=== PATIENT | female | born 1940 | race Caucasian/White ===

== ENCOUNTER 2017-05-27 18:14 | Observation (INO) ==
[~2017-05-27 18:14] MED LIST: *HR* Propofol 200 MG/20 ML VIAL IVP ONE; Lidocaine -MPF 2% 5 ML VIAL INFILT ONE
[2017-05-27 19:59] LABS: Basophils % 0.4 %; Hematocrit 25.9 % (35.3-44.9); Mean Corpuscular HGB Conc 28.6 g/dL (31.6-35.5); Mean Corpuscular Hemoglobin 21.3 pg (28.0-33.3); Mean Platelet Volume 10.6 fL (9.4-12.4); Monocytes # 0.6 K/mcL (0.0-1.3); Monocytes % 7.9 %; Nucleated Red Blood Cells 0.2 /100 WBC (0)
[2017-05-27 20:01] LABS: Eosinophils # 0.1 K/mcL (0.0-0.6); Eosinophils % 1.2 %; Immature Granulocytes % 0.6 % (0-4); Lymphocytes # 1.8 K/mcL (0.6-4.6); Lymphocytes % 22.1 %; Mean Corpuscular Volume 74.6 fL (83.0-100.0); Neutrophils # 5.5 K/mcL (1.6-8.9); Platelet Count 301 K/mcL (140-400); Red Blood Count 3.47 M/mcL (3.82-4.97); Red Cell Distribution Width 22.5 % (11.5-14.5); Segmented Neutrophils % 67.8 %
[2017-05-27 20:11] LABS: Calcium 9.6 mg/dL (8.6-10.8)
[2017-05-27 20:15] LABS: Hemoglobin 7.4 g/dL (11.5-15.4)
[2017-05-27 20:16] LABS: Anisocytosis 2+ (Not Present); Hypochromasia Present (Not Present); Microcytosis Present (Not Present); Platelet Clumps Few (Not Present)
--- NOTE | 2017-05-27 20:16 | Emergency Department Note ---
Disposition Clinical Impression: SOB (shortness of breath), Hypokalemia Anemia Qualifiers: Anemia type: other cause Other causes of anemia: other cause, not classified Qualified Code(s): D64.89 - Other specified anemias Disposition: Admitted As Inpatient Condition: Fair Time of Disposition: 23:25 General Adult HPI - General Chief complaint: ED Recheck/Abnormal Lab/Rx Stated complaint: Abnormal labs Time Seen by Provider: 05/27/17 19:59 Source: patient Limitations: no limitations Nursing Notes Reviewed: Yes Vital Signs Reviewed: Yes - History of Present Illness HPI Narrative: 77-year-old female presents to the emergency department with concern for anemia that her GI doctor sent her here for an inpatient lower endoscopy. The patient has been complaining of shortness of breath on exertion prior to being diagnosed with this anemia. There was also concern by the diet technician registered that this patient may need blood products. Pain Scale: 0 - Related Data Home Medications Medication Instructions Recorded Confirmed Aspirin [Adult Low Dose Aspirin EC] 81 mg PO DAILY 09/08/15 05/27/17 Atorvastatin Calcium 80 mg PO HS 09/08/15 05/27/17 Pioglitazone [Actos] 45 mg PO DAILY 09/08/15 05/27/17 Trospium Chloride [Trospium 60 mg PO DAILY 09/08/15 05/27/17 Chloride ER] Atenolol/Chlorthalidone [Tenoretic 1 each PO DAILY 05/27/17 05/27/17 100 Tablet] Ferrous Sulfate [Iron] 325 mg PO TID 05/27/17 05/27/17 Losartan [Cozaar] 25 mg PO DAILY 05/27/17 05/27/17 Metformin HCl [Metformin HCl ER] 1,000 mg PO DAILY 05/27/17 05/27/17 Omeprazole [PriLOSEC] 20 mg PO DAILY 05/27/17 05/27/17 Allergies Allergy/AdvReac Type Severity Reaction Status Date / Time No Known Allergies Allergy Verified 06/23/16 08:55 All systems ED: reviewed and negative except as stated. Review of Systems: As Per HPI Constitutional: Denies: fever Cardiovascular: Reports: dyspnea on exertion. Denies: chest pain Respiratory: Reports: dyspnea. Denies: cough, hemoptysis Gastrointestinal: Denies: abdominal pain Genitourinary: Denies: hematuria Integumentary: Denies: rash Neurological: Denies: headache Past Medical History - Past Medical History Medical history: Reports: arthritis, diabetes, hypertension Surgical history: Reports: hip replacement, hysterectomy, other Psychiatric history: Reports: no psych history - Social History Smoking Status: Never smoker Smokeless Tobacco Status: No Alcohol use: Reports: none Drug use: Reports: none Physical Exam General: Well Appearing 77-year-old female, in no acute distress Head: autraumatic, EOMI, conjuncitval pallor, no scleral icterus, Mouth: oral mucous membranes moist Neck: neck soft, trachea midline Chest:: Equal chest wall rise Lungs: Normal lungs sounds bilaterally, no wheezes, no respiratory distress Heart: normal heart sounds, normal rate and rhythm, Abdomen: soft, non-tender, no rigidity, no guarding, no rebdound tenderness Lower Extremities: no pedal edema, calves non-tender Integumentary: Skin warm, dry, and intact Neuro: Alert Psych: normal affect, normal mood - General Limitations: no limitations General appearance: alert, in no apparent distress Course Vital Signs Temperature 98.2 F 05/27/17 18:41 Pulse Rate 79 05/27/17 18:41 Respiratory Rate 16 05/27/17 18:41 Blood Pressure 102/63 05/27/17 18:41 O2 Sat by Pulse Oximetry 98 05/27/17 18:41 Temperature 97.4 F L 05/27/17 23:00 Pulse Rate 67 05/27/17 23:00 Respiratory Rate 18 05/27/17 23:31 Blood Pressure 116/95 05/27/17 23:31 O2 Sat by Pulse Oximetry 97 05/27/17 23:00 Oxygen Delivery Oxygen Delivery Room Air Medical Decision Making - [facility] Narrative Medical decision making narrative: 77-year-old female presents to the emergency department with concern for anemia. CBC revealed a hemoglobin of 7.4. This patient is currently symptomatic as she is having shortness of breath. At this time, we will transfuse 2 units of blood proximal to this patient. Fecal Hemoccult was negative. There was concern for possibility of needing admission to perform a lower endoscopy. At this time, I cannot find a source for this patient's anemia. Patient's electrocardiogram does not reveal any ischemic changes. Patient's vital signs did not reveal any evidence of hypovolemia. Patient was admitted to the hospitalist Dr. Lechuga. I discussed the plan with patient and her and they agreed for admission. Patient is also mildly hypokalemic with a potassium of 3.0. We will replace this with 40 mg equivalents of potassium Vital Signs Temperature 98.2 F 05/27/17 18:41 Pulse Rate 79 05/27/17 18:41 Respiratory Rate 16 05/27/17 18:41 Blood Pressure 102/63 05/27/17 18:41 O2 Sat by Pulse Oximetry 98 05/27/17 18:41 Temperature 97.4 F L 05/27/17 23:00 Pulse Rate 67 05/27/17 23:00 Respiratory Rate 18 05/27/17 23:31 Blood Pressure 116/95 05/27/17 23:31 O2 Sat by Pulse Oximetry 97 05/27/17 23:00 Oxygen Delivery Oxygen Delivery Room Air - Medical Records Medical records reviewed: Yes I reviewed the patient's medical records. 77 year female past medical history of - Lab Data Lab results reviewed: Yes I reviewed the patient's lab results. Result diagrams: 05/27/17 19:49 05/27/17 19:49 Lab Results 05/27/17 05/27/17 05/27/17 Range/Units 19:49 19:49 19:49 WBC 8.1 (4.3-11.1) K/mcL RBC 3.47 L (3.82-4.97) M/mcL Hgb 7.4 L (11.5-15.4) g/dL Hct 25.9 L (35.3-44.9) % MCV 74.6 L (83.0-100.0) fL MCH 21.3 L (28.0-33.3) pg MCHC 28.6 L (31.6-35.5) g/dL RDW 22.5 H (11.5-14.5) % Plt Count 301 (140-400) K/mcL MPV 10.6 (9.4-12.4) fL Immature Gran % 0.6 (0-4) % Seg Neutrophils % 67.8 % Lymphocytes % 22.1 % Monocytes % 7.9 % Eosinophils % 1.2 % Basophils % 0.4 % Neutrophils # 5.5 (1.6-8.9) K/mcL Lymphocytes # 1.8 (0.6-4.6) K/mcL Monocytes # 0.6 (0.0-1.3) K/mcL Eosinophils # 0.1 (0.0-0.6) K/mcL Basophils # 0.0 (0.0-0.2) K/mcL Nucleated RBCs/100 WBC 0.2 H (0) /100 WBC Clumped Platelets Few A (Not Present) Hypochromasia Present A (Not Present) Anisocytosis 2+ A (Not Present) Microcytosis Present A (Not Present) PT 11.4 (9.4-12.1) Seconds INR 1.1 APTT 29.2 (26.0-36.0) Seconds Sodium 139 (136-145) mEq/L Potassium 3.0 L (3.5-4.5) mEq/L Chloride 100 (98-109) mEq/L Carbon Dioxide 25 (19-29) mEq/L BUN 26 H (7-20) mg/dL Creatinine 1.26 H (0.57-1.11) mg/dL Est GFR ( Amer) 50 L (> 60) Est GFR (Non-Af Amer) 41 L (> 60) BUN/Creatinine Ratio 21 (6-26) Glucose 99 (70-99) mg/dL Calculated Osmolality 293 (280-300) Lactic Acid (0.5-2.2) mmol/L Calcium 9.6 (8.6-10.8) mg/dL Iron (50-170) mcg/dL % Saturation (15-50) % Transferrin (180-382) mg/dL Troponin I (0-0.03) ng/mL Stool Occult Blood (Negative) Blood Type Antibody Screen Crossmatch 05/27/17 05/27/17 05/27/17 Range/Units 19:49 19:49 20:28 WBC (4.3-11.1) K/mcL RBC (3.82-4.97) M/mcL Hgb (11.5-15.4) g/dL Hct (35.3-44.9) % MCV (83.0-100.0) fL MCH (28.0-33.3) pg MCHC (31.6-35.5) g/dL RDW (11.5-14.5) % Plt Count (140-400) K/mcL MPV (9.4-12.4) fL Immature Gran % (0-4) % Seg Neutrophils % % Lymphocytes % % Monocytes % % Eosinophils % % Basophils % % Neutrophils # (1.6-8.9) K/mcL Lymphocytes # (0.6-4.6) K/mcL Monocytes # (0.0-1.3) K/mcL Eosinophils # (0.0-0.6) K/mcL Basophils # (0.0-0.2) K/mcL Nucleated RBCs/100 WBC (0) /100 WBC Clumped Platelets (Not Present) Hypochromasia (Not Present) Anisocytosis (Not Present) Microcytosis (Not Present) PT (9.4-12.1) Seconds INR APTT (26.0-36.0) Seconds Sodium (136-145) mEq/L Potassium (3.5-4.5) mEq/L Chloride (98-109) mEq/L Carbon Dioxide (19-29) mEq/L BUN (7-20) mg/dL Creatinine (0.57-1.11) mg/dL Est GFR ( Amer) (> 60) Est GFR (Non-Af Amer) (> 60) BUN/Creatinine Ratio (6-26) Glucose (70-99) mg/dL Calculated Osmolality (280-300) Lactic Acid (0.5-2.2) mmol/L Calcium (8.6-10.8) mg/dL Iron 292 H (50-170) mcg/dL % Saturation 81 H (15-50) % Transferrin 259 (180-382) mg/dL Troponin I 0.01 (0-0.03) ng/mL Stool Occult Blood (Negative) Blood Type A POSITIVE Antibody Screen NEGATIVE Crossmatch See Detail 05/27/17 05/27/17 Range/Units 20:28 22:02 WBC (4.3-11.1) K/mcL RBC (3.82-4.97) M/mcL Hgb (11.5-15.4) g/dL Hct (35.3-44.9) % MCV (83.0-100.0) fL MCH (28.0-33.3) pg MCHC (31.6-35.5) g/dL RDW (11.5-14.5) % Plt Count (140-400) K/mcL MPV (9.4-12.4) fL Immature Gran % (0-4) % Seg Neutrophils % % Lymphocytes % % Monocytes % % Eosinophils % % Basophils % % Neutrophils # (1.6-8.9) K/mcL Lymphocytes # (0.6-4.6) K/mcL Monocytes # (0.0-1.3) K/mcL Eosinophils # (0.0-0.6) K/mcL Basophils # (0.0-0.2) K/mcL Nucleated RBCs/100 WBC (0) /100 WBC Clumped Platelets (Not Present) Hypochromasia (Not Present) Anisocytosis (Not Present) Microcytosis (Not Present) PT (9.4-12.1) Seconds INR APTT (26.0-36.0) Seconds Sodium (136-145) mEq/L Potassium (3.5-4.5) mEq/L Chloride (98-109) mEq/L Carbon Dioxide (19-29) mEq/L BUN (7-20) mg/dL Creatinine (0.57-1.11) mg/dL Est GFR ( Amer) (> 60) Est GFR (Non-Af Amer) (> 60) BUN/Creatinine Ratio (6-26) Glucose (70-99) mg/dL Calculated Osmolality (280-300) Lactic Acid 2.3 H (0.5-2.2) mmol/L Calcium (8.6-10.8) mg/dL Iron (50-170) mcg/dL % Saturation (15-50) % Transferrin (180-382) mg/dL Troponin I (0-0.03) ng/mL Stool Occult Blood Negative (Negative) Blood Type Antibody Screen Crossmatch - EKG Data EKG #1 EKG attestation: Yes I reviewed and interpreted this EKG. EKG results narrative: 20:38 Ventricular rate 74 bpm, DE interval 209 ms, QRS duration 89 ms, QT 412 ms, QTC 439 ms, left axis deviation. Sinus rhythm with ventricular rate of 74 bpm. There are no ischemic ST changes noted on this electrocardiogram with a previous one performed on 12/15/2012.
[2017-05-27 20:25] LABS: INR 1.1; Prothrombin Time 11.4 Seconds (9.4-12.1)
[2017-05-27 20:27] LABS: Activated Partial Thrombo Time 29.2 Seconds (26.0-36.0)
--- NOTE | 2017-05-27 21:16 | Emergency Department Note ---
START Narrative - START START: I examined this patient and my medical decision-making was reviewed with the Resident Physician. I agree with the documented findings, disposition and treatment plan as described except to the extent set forth below. 77 year old female presents to the ED with complaints o hgb of 7.7 and shorness of breath and was asked to come to the eD for admission because they woul dnot do her as an outpaitnent colonscopy due to her hgb level. Crescencio has ahgb of 7.4 and denies GI lower bleed or upper bleed or abdominal pain. We will transfuse two units and admit to medicine for colonscopy.
[2017-05-27] MEDS ORDERED: Potassium Citrate 10 MEQ TABLET.ER PO ONE (23:06)
[2017-05-27 23:22] LABS: % Iron Saturation 81 % (15-50); Iron 292 mcg/dL (50-170); Transferrin 259 mg/dL (180-382)
[2017-05-27] MEDS ORDERED: *HR* Dextrose 50 % in Water (Syg) 50 ML SYRINGE IVP PRN (23:45)
[2017-05-27] MEDS ORDERED: Dextrose Gel 15 GM PO PRN ×2 (23:45)
[2017-05-27] MEDS ORDERED: *HR* OxyCODONE Immed Rel 5 MG TABLET PO PRN (23:45)
[2017-05-27] MEDS ORDERED: Acetaminophen 325 MG TABLET PO PRN (23:45)
[2017-05-27] MEDS ORDERED: Ondansetron 4 MG/2 ML VIAL IVP PRN (23:45)
[2017-05-27] MEDS ORDERED: Naloxone 0.4 MG/ML INJ IVP PRN (23:45)
[2017-05-27] MEDS ORDERED: *HR* Morphine 2 MG/ML SYRINGE IVP PRN (23:45)
[2017-05-27] MEDS ORDERED: D5% in Water 1,000 ML IVC PRN (23:45)
[2017-05-27] MEDS ORDERED: 0.9 % Sodium Chloride 1,000 ML IVC SCH (23:45)
--- NOTE | 2017-05-27 23:48 | Internal Med History&Physical ---
Date of Encounter: 05/27/17 Time of Encounter: 23:48 Assessment and Plan (1) Symptomatic anemia Current visit: Yes Status: Acute No signs of active bleeding Monitor CBC, complete 2 units of blood ordered by ER IV fluids Clear liquids for now, hold aspirin Consider holding blood pressure medications Check orthostatics, start Protonix IV May consult surgery if the patient presents active bleeding, otherwise can consult GI on Tuesday for endoscopy as there is no GI coverage over the weekend for non-emergent procedures Protonix 40 prophylaxis and sequential compression devices for DVT prophylaxis. The patient will be admitted for observation. Full code. Time spent on this admission 40 minutes (2) Diabetes Current visit: Yes Status: Acute Hold oral Hypoglycemic agents Use insulin sliding scale only Qualifiers: Diabetes mellitus type: type 2 Diabetes mellitus complication status: without complication Diabetes mellitus tank terminal gauger insulin use: without tank terminal gauger use Qualified Code(s): E11.9 - Type 2 diabetes mellitus without complications (3) Hypertension Current visit: Yes Status: Acute Consider holding atenolol if there are signs of bleeding Qualifiers: Hypertension type: essential hypertension Qualified Code(s): I10 - Essential (primary) hypertension (4) Hypokalemia Current visit: Yes Status: Acute Replete as needed Internal Medicine - H&P: HPI Chief complaint: Weakness Admitted From: Emergency Dept History of present illness: Ms. Vaca is a 77 year old female with a past medical history of diabetes type 2 not insulin-dependent, GERD, hypertension, hyperlipidemia, came to the emergency room complaining of fatigue. Apparently she went to see her primary care physician recently and she was told to come to the ER as her blood counts were low. Her hemoglobin is 7.4 potassium is 3, creatinine is 1.26, there are no prior values, lactic acid is 2.3. Hemoccult was negative and there are no signs of active bleeding. Patient will be transfused with 2 units of blood ordered by the ER. She mentions that she has been feeling DZ and very fatigued over the past 3 months. Last colonoscopy was at the end of last year and showed only diverticulosis. This was performed by Dr. Finnegan. Denies dark stools or active bleeding. Past Med Surg Social Fam HX - Past Medical History Medical history: arthritis, diabetes (Not insulin-dependent), GERD, hypertension , other (Osteoarthritis, diverticulosis) Psychiatric history: no psych history - Past Surgical History Surgical History: hip replacement, hysterectomy, other - Social History Smoking Status: Never smoker Smokeless Tobacco Status: No Alcohol use: none Drug use: none - Additional Family History Additional family history: Mother with CVA and maternal grandmother with diabetes Internal Medicine - H&P: Meds Aspirin [Adult Low Dose Aspirin EC] 81 mg PO DAILY 09/08/15 [History] Atorvastatin Calcium 80 mg PO HS 09/08/15 [History] Pioglitazone [Actos] 45 mg PO DAILY 09/08/15 [History] Trospium Chloride [Trospium Chloride ER] 60 mg PO DAILY 09/08/15 [History] Atenolol/Chlorthalidone [Tenoretic 100 Tablet] 1 each PO DAILY 05/27/17 [History ] Ferrous Sulfate [Iron] 325 mg PO TID 05/27/17 [History] Losartan [Cozaar] 25 mg PO DAILY 05/27/17 [History] Metformin HCl [Metformin HCl ER] 1,000 mg PO DAILY 05/27/17 [History] Omeprazole [PriLOSEC] 20 mg PO DAILY 05/27/17 [History] 3 Allergy/AdvReac Type Severity Reaction Status Date / Time No Known Allergies Allergy Verified 06/23/16 08:55 All Systems PM: A 10-system review of systems was performed and is negative for pertinent findings except as documented above in the HPI. Review of systems: No chest pain, short of breath, no abdominal pain, no dysuria. Other systems out of the 10 reviewed were negative - Constitutional Vitals: Temp Pulse Resp BP Pulse Ox 97.4 F L 67 18 116/95 97 05/27/17 23:00 05/27/17 23:00 05/27/17 23:31 05/27/17 23:31 05/27/17 23:00 General appearance: Present: A&O X 3 - Head Head exam: Present: atraumatic, normocephalic - Eye Eye exam: Present: PERRL, conjuntiva pink, sclera anicteric Pupils: Present: PERRL - Neck Neck exam general surgery: Present: supple, trachea midline. Absent: lymphadenopathy - Respiratory Respiratory exam: Present: CTAB. Absent: accessory muscle use, rales, rhonchi, wheezes - Cardiovascular Cardiovascular exam: Present: RRR, +S1, +S2. Absent: diastolic murmur, gallop, rubs, systolic murmur - GI/Abdominal GI/Abdominal exam: Present: normal bowel sounds, soft, no peritoneal signs. Absent: distended, tenderness - Extremities Exam Extremities exam: Present: warm, radial pulses palpable and symmetrical. Absent : calf tenderness, cyanotic, pedal edema - Neurological Exam Neurological exam: Present: CN II-XII intact, oriented X3, no focal deficits. Absent: pronater drift, facial droop, speech deficit - Skin Skin exam: Present: dry, intact Internal Med - H&P Results - Labs CBC & Chem 7: 05/27/17 19:49 05/27/17 19:49
[2017-05-28] MEDS: Pantoprazole 40 MG VIAL IVP SCH ×3 (00:58→17:38)
[2017-05-28] MEDS ORDERED: 0.9 % Sodium Chloride 250 ML ONE (01:04)
[2017-05-28 04:51] LABS: Hematocrit 31.4 % (35.3-44.9); Mean Corpuscular HGB Conc 30.3 g/dL (31.6-35.5); Mean Corpuscular Hemoglobin 24.1 pg (28.0-33.3); Mean Corpuscular Volume 79.5 fL (83.0-100.0); Mean Platelet Volume 10.9 fL (9.4-12.4); Platelet Count 227 K/mcL (140-400); Red Blood Count 3.95 M/mcL (3.82-4.97); Red Cell Distribution Width 22.7 % (11.5-14.5)
[2017-05-28 04:54] LABS: Hemoglobin 9.5 g/dL (11.5-15.4)
[2017-05-28 05:08] LABS: Calcium 8.8 mg/dL (8.6-10.8); Potassium 3.1 mEq/L (3.5-4.5)
[2017-05-28] MEDS: Insulin LISPRO 300 UNITS/3 ML VIAL SQ SCH ×4 (08:10→20:14)
[2017-05-28] MEDS ORDERED: 0.9 % Sodium Chloride 1,000 ML IVC ONE (16:04)
--- NOTE | 2017-05-28 16:14 | Internal Med Progress Note ---
Date of Encounter: 05/28/17 Time of Encounter: 16:03 - Assessment and plan (1) Symptomatic anemia Current Visit: Yes Status: Acute Assessment and plan: Kaia Vaca is a 77 old female with past medical history diabetes and hypertension who presented to [facility] on 05/27/2017 with complaints of lightheadedness and dizziness. She was found to be anemic with Hgb of 7.4. She was transfused 2 units and placed in observation status for further workup and treatment. 1. Symptomatic anemia: Has been weak, tired and fatigue for several weeks prior to presentation. Hgb 7.4 on arrival. Occult stool negative, no active bleeding. Monitor H&H, transfuse for Hgb less than 8, IV PPI. GI consulted 2. Hypokalemia: K3 on arrival, replaced in up to 3.1 on 05/28. Order replacement, monitor repeat CMP, check mg. 3. RADHA: Creatinine 1.2. No history of renal disease. Likely secondary to hypovolemia. Improving with IV fluids. Monitor repeat renal function. 4. Elevated lactic acid: Lactic acid peaked at 2.8. No obvious infectious source. WBC 6.9, no tachycardia, no hypotension. IV fluids monitor repeat lactic acid 5. CAD: per hx. Hold ASA. Cont home BB, statin 6. DVT prophylaxis: SCDs (2) CAD (coronary artery disease) Current Visit: Yes Status: Acute Qualifiers: Coronary Disease-Associated Artery/Lesion type: [place] artery [place] vs. transplanted heart: [place] heart Associated angina: without angina Qualified Code(s): I25.10 - Atherosclerotic heart disease of [place] coronary artery without angina pectoris (3) Hypokalemia Current Visit: Yes Status: Acute (4) Diabetes Current Visit: Yes Status: Acute Qualifiers: Diabetes mellitus type: type 2 Diabetes mellitus complication status: without complication Diabetes mellitus long-term insulin use: without buttermaker continuous churn use Qualified Code(s): E11.9 - Type 2 diabetes mellitus without complications (5) Hypertension Current Visit: Yes Status: Acute Qualifiers: Hypertension type: essential hypertension Qualified Code(s): I10 - Essential (primary) hypertension - Subjective Interval history: Seen and examined at bedside, patient says she feels much better after receiving blood. She denies obvious bleeding. No dark or tarry stools. - Constitutional Vitals: Temp Pulse Resp BP Pulse Ox 97.6 F 70 14 121/69 99 05/28/17 10:49 05/28/17 10:49 05/28/17 10:49 05/28/17 10:49 05/28/17 10:49 General appearance: Present: A&O X 3 - Head Head exam: Present: atraumatic, normocephalic - Eye Eye exam: Present: PERRL, conjuntiva pink, sclera anicteric Pupils: Present: PERRL - Neck Neck exam general surgery: Present: supple, trachea midline. Absent: lymphadenopathy - Respiratory Respiratory exam: Present: CTAB. Absent: accessory muscle use, rales, rhonchi, wheezes - Cardiovascular Cardiovascular exam: Present: RRR, +S1, +S2. Absent: diastolic murmur, gallop, rubs, systolic murmur - GI/Abdominal GI/Abdominal exam: Present: normal bowel sounds, soft, no peritoneal signs. Absent: distended, tenderness - Extremities Exam Extremities exam: Present: warm, radial pulses palpable and symmetrical. Absent : calf tenderness, cyanotic, pedal edema - Neurological Exam Neurological exam: Present: CN II-XII intact, oriented X3, no focal deficits. Absent: pronater drift, facial droop, speech deficit - Skin Skin exam: Present: dry, intact Internal Medicine: Result - Labs CBC & Chem 7: 05/28/17 04:30 05/28/17 04:30 Labs: Short CBC 05/28/17 Range/Units 04:30 WBC 6.9 (4.3-11.1) K/mcL Hgb 9.5 L D (11.5-15.4) g/dL Hct 31.4 L (35.3-44.9) % Plt Count 227 (140-400) K/mcL BMP 05/28/17 04:30 Sodium 140 Potassium 3.1 L Chloride 105 Carbon Dioxide 25 BUN 23 H Creatinine 1.13 H Glucose 94 Calcium 8.8 - ABG Interpretation ABG results: PT/INR, D-dimer PT 11.4 Seconds (9.4-12.1) 05/27/17 19:49 Consult Discharge Plan - Plan Referrals: Cecille Mary MD [Primary Care Provider] -
[2017-05-28] MEDS: 0.9 % Sodium Chloride 1,000 ML IVC SCH ×2 (17:38→21:31)
[2017-05-29 04:43] LABS: Hematocrit 30.6 % (35.3-44.9); Hemoglobin 9.1 g/dL (11.5-15.4); Mean Corpuscular HGB Conc 29.7 g/dL (31.6-35.5); Mean Corpuscular Hemoglobin 23.7 pg (28.0-33.3); Mean Corpuscular Volume 79.7 fL (83.0-100.0); Mean Platelet Volume 11.3 fL (9.4-12.4); Platelet Count 223 K/mcL (140-400); Red Blood Count 3.84 M/mcL (3.82-4.97); Red Cell Distribution Width 23.1 % (11.5-14.5)
[2017-05-29 04:59] LABS: BUN/Creatinine Ratio 16 (6-26); Blood Urea Nitrogen 14 mg/dL (7-20); Calcium 8.2 mg/dL (8.6-10.8); Carbon Dioxide 22 mEq/L (19-29); Chloride 112 mEq/L (98-109); Glucose 86 mg/dL (70-99); Magnesium 1.2 mg/dL (1.6-2.6); Osmolality,Calculated 296 (280-300); Potassium 3.5 mEq/L (3.5-4.5); Sodium 143 mEq/L (136-145); eGFR For African Americans > 60 (> 60); eGFR For Non-African Americans > 60 (> 60)
[2017-05-29] MEDS: Pantoprazole 40 MG VIAL IVP SCH ×2 (05:24→16:57)
[2017-05-29] MEDS: Insulin LISPRO 300 UNITS/3 ML VIAL SQ SCH ×4 (08:53→21:29)
--- NOTE | 2017-05-29 16:09 | Internal Med Progress Note ---
Date of Encounter: 05/29/17 Time of Encounter: 16:09 - Assessment and plan (1) Symptomatic anemia Current Visit: Yes Status: Acute Assessment and plan: Kaia Vaca is a 77 old female with past medical history diabetes and hypertension who presented to [facility] on 05/27/2017 with complaints of lightheadedness and dizziness. She was found to be anemic with Hgb of 7.4. She was transfused 2 units and placed in observation status for further workup and treatment. 1. Symptomatic anemia: Has been weak, tired and fatigue for several weeks prior to presentation. Hgb 7.4 on arrival. Received 2 units PRBC and EGD. Occult stool negative, no active bleeding. Repeat Hgb 9.1. Monitor H&H, transfuse for Hgb less than 8, IV PPI. NPO at midnight. GI consulted 2. Hypokalemia: With hypomagnesium. Replace PRN 3. RADHA: Creatinine 1.2. No history of renal disease. Likely secondary to hypovolemia. Normalized with IV fluids. Monitor repeat renal function. 4. Elevated lactic acid: Lactic acid peaked at 2.8 and trended down. No obvious infectious source. WBC 6.9, no tachycardia, no hypotension. 5. CAD: per hx. Hold ASA. Cont home BB, statin 6. DVT prophylaxis: SCDs (2) CAD (coronary artery disease) Current Visit: Yes Status: Acute Qualifiers: Coronary Disease-Associated Artery/Lesion type: [place] artery [place] vs. transplanted heart: [place] heart Associated angina: without angina Qualified Code(s): I25.10 - Atherosclerotic heart disease of [place] coronary artery without angina pectoris (3) Hypokalemia Current Visit: Yes Status: Acute (4) Diabetes Current Visit: Yes Status: Acute Qualifiers: Diabetes mellitus type: type 2 Diabetes mellitus complication status: without complication Diabetes mellitus fdc insulin use: without emt intermediate use Qualified Code(s): E11.9 - Type 2 diabetes mellitus without complications (5) Hypertension Current Visit: Yes Status: Acute Qualifiers: Hypertension type: essential hypertension Qualified Code(s): I10 - Essential (primary) hypertension - Subjective Interval history: Seen and examined at bedside; says she had an uneventful night. No black or tarry stools, no obvious bleeding. Still a little tired and weak but overall significantly improved. No chest pain or shortness of breath. - Constitutional Vitals: Temp Pulse Resp BP Pulse Ox 97.8 F 67 16 134/70 97 05/29/17 15:16 05/29/17 15:16 05/29/17 15:16 05/29/17 15:16 05/29/17 15:16 General appearance: Present: A&O X 3, morbidly obese, no acute distress - Head Head exam: Present: atraumatic, normocephalic - Eye Eye exam: Present: PERRL, conjuntiva pink, sclera anicteric Pupils: Present: PERRL - Neck Neck exam general surgery: Present: supple, trachea midline. Absent: lymphadenopathy - Respiratory Respiratory exam: Present: CTAB. Absent: accessory muscle use, rales, rhonchi, wheezes - Cardiovascular Cardiovascular exam: Present: RRR, +S1, +S2. Absent: diastolic murmur, gallop, rubs, systolic murmur - GI/Abdominal GI/Abdominal exam: Present: normal bowel sounds, soft, no peritoneal signs. Absent: distended, tenderness - Extremities Exam Extremities exam: Present: warm, radial pulses palpable and symmetrical. Absent : calf tenderness, cyanotic, pedal edema - Neurological Exam Neurological exam: Present: CN II-XII intact, oriented X3, no focal deficits. Absent: pronater drift, facial droop, speech deficit - Skin Skin exam: Present: dry, intact Internal Medicine: Result - Labs CBC & Chem 7: 05/29/17 03:50 05/29/17 03:50 Labs: Short CBC 05/29/17 Range/Units 03:50 WBC 5.7 (4.3-11.1) K/mcL Hgb 9.1 L (11.5-15.4) g/dL Hct 30.6 L (35.3-44.9) % Plt Count 223 (140-400) K/mcL BMP 05/29/17 03:50 Sodium 143 Potassium 3.5 Chloride 112 H Carbon Dioxide 22 BUN 14 Creatinine 0.88 Glucose 86 Calcium 8.2 L - ABG Interpretation ABG results: PT/INR, D-dimer PT 11.4 Seconds (9.4-12.1) 05/27/17 19:49 Consult Discharge Plan - Plan Referrals: Cecille Mary MD [Primary Care Provider] -
[2017-05-30 04:49] LABS: Hemoglobin 9.1 g/dL (11.5-15.4); Mean Corpuscular HGB Conc 29.4 g/dL (31.6-35.5); Mean Corpuscular Hemoglobin 23.9 pg (28.0-33.3); Mean Corpuscular Volume 81.4 fL (83.0-100.0); Platelet Count 200 K/mcL (140-400); Red Blood Count 3.81 M/mcL (3.82-4.97); Red Cell Distribution Width 24.2 % (11.5-14.5)
[2017-05-30 05:02] LABS: Calcium 8.4 mg/dL (8.6-10.8); Potassium 3.5 mEq/L (3.5-4.5)
[2017-05-30] MEDS: Pantoprazole 40 MG VIAL IVP SCH ×2 (05:35→16:14)
[2017-05-30] MEDS: Insulin LISPRO 300 UNITS/3 ML VIAL SQ SCH ×4 (09:39→21:31)
--- NOTE | 2017-05-30 12:18 | Gastroenterology Consult Note ---
<Silvia Matthews - Last Filed: 05/30/17 12:12> Date of Encounter: 05/30/17 Time of Encounter: 10:30 - Assessment and plan (1) Symptomatic anemia Current Visit: Yes Status: Acute Assessment and plan: Pt presents with symptomatic anemia, Hgb was 7.4. She is improved following transfusion. She denies hematemesis or hematochezia or melena. She had colonoscopy by Dr Finnegan 06/09 which showed diverticulosis. She needs EGD. She may need repeat colonoscopy vs capsule endoscopy if EGD normal. - Time Spent With Patient Total time spent is greater than 50% in coordination of care (as documented) at patient's floor/unit and/or counseling patient: GI History of Present Illness - Data of Consult Patient: new to practice Consult date: 05/30/17 Requesting Physician: Michelle Richardson CNP - Consult Narrative Reason for consult: anemia History of present illness: Ms. Vaca is a 77 year old female with a past medical history of diabetes type 2 not insulin-dependent, GERD, hypertension, and hyperlipidemia. She presented to the ER after her PCP informed her that her Hgb and iron were very low. She complains of fatigue, dizziniess, near syncope, and dyspnea on exertion for the past 3 months. She states she was recently started on iron supplements with no change in symptoms. She was found to have a hemoglobin 7.4 and has been transfused 2 units and feels much better now. She denies any hematemesis, melena or bloody BMs. She denies abdominal pain, nausea, vomiting or diarrhea. She complains of intermittent constipation and reports no BM for the past 5 days. Last colonoscopy was 06/09 showed only diverticulosis by Dr. Finnegan. She denies EGD. Colonoscopy: 06/09 diverticulosis EGD: denies NSAIDS/ASA: ASA 81 mg Anticoagulants: none Past Med Surg Social Fam HX - Past Medical History Medical history: arthritis, diabetes, GERD, hypertension, other Psychiatric history: no psych history - Past Surgical History Surgical History: hip replacement, hysterectomy, other - Social History Smoking Status: Never smoker Smokeless Tobacco Status: No Alcohol use: none Drug use: none - Family History Father Living Status: Hx Family Endocrine Disorder: Yes Review of Systems: GI: as per [facility] GENERAL: denies fever, or chills EYES: denies yellow discoloration ENT: denies pain with swallowing or difficulty swallowing CARDIO: denies chest pain, palpitations RESP: Shortness of breath with exertion : denies change in color of urine NEURO: weakness and fatigue improved following blood transfusion HEME: Denies any bruising MS: denies joint pain, joint swelling or back pain. DERM: denies rash or itching PSYCH: Denies history of anxiety or depression - Constitutional Vitals: Temp Pulse Resp BP Pulse Ox 98.1 F 90 16 133/78 90 05/30/17 11:00 05/30/17 11:00 05/30/17 11:00 05/30/17 11:00 05/30/17 11:00 Exam: CONSTITUTIONAL:~alert, no acute distress.~HEAD:~normocephalic.~EYES:~no jaundice.~NECK:~no obvious swelling.~HEART:~regular rate and rhythm, no murmurs. ~LUNGS:~bilateral good air entry.~ABDOMEN:~non distended, soft, non tender, no masses palpable, no organomegaly, low transverse abdominal scar well healed.~ RECTAL EXAM:~Deferred.~EXTREMITIES:~no clubbing, cyanosis or edema.~SKIN:~no stigmata of chronic liver disease.~NEUROLOGIC:~no obvious focal defect.~~~~ Results - Labs CBC & Chem 7: 05/30/17 03:55 05/30/17 03:55 Labs: Last Result Calcium 8.4 mg/dL (8.6-10.8) L 05/30/17 03:55 Iron 292 mcg/dL (50-170) H 05/27/17 19:49 % Saturation 81 % (15-50) H 05/27/17 19:49 Transferrin 259 mg/dL (180-382) 05/27/17 19:49 Troponin I 0.01 ng/mL (0-0.03) 05/27/17 19:49 Stool Occult Blood Negative (Negative) 05/27/17 22:02 Entire Visit Hgb 9.1 g/dL (11.5-15.4) L 05/30/17 03:55 Hct 31.0 % (35.3-44.9) L 05/30/17 03:55 PT 11.4 Seconds (9.4-12.1) 05/27/17 19:49 - ABG ABG results: PT/INR, D-dimer PT 11.4 Seconds (9.4-12.1) 05/27/17 19:49 Consult Discharge Plan - Plan Referrals: Cecille Mary MD [Primary Care Provider] - <Joi Callaway - Last Filed: 05/31/17 08:35> Date of Encounter: 05/30/17 Time of Encounter: 14:25 - Time Spent With Patient Total time spent is greater than 50% in coordination of care (as documented) at patient's floor/unit and/or counseling patient: GI History of Present Illness - Data of Consult Requesting Physician: Michelle Richardson CNP - Consult Narrative History of present illness: Ms. Vaca is a 77 year old female - Constitutional Vitals: Temp Pulse Resp BP Pulse Ox 97.7 F 73 15 117/74 97 05/31/17 06:37 05/31/17 06:37 05/31/17 06:37 05/31/17 06:37 05/31/17 06:37 Results - Labs CBC & Chem 7: 05/31/17 05:24 05/31/17 05:24 Labs: Last Result Calcium 8.7 mg/dL (8.6-10.8) 05/31/17 05:24 Iron 292 mcg/dL (50-170) H 05/27/17 19:49 % Saturation 81 % (15-50) H 05/27/17 19:49 Transferrin 259 mg/dL (180-382) 05/27/17 19:49 Troponin I 0.01 ng/mL (0-0.03) 05/27/17 19:49 Stool Occult Blood Negative (Negative) 05/27/17 22:02 Entire Visit Hgb 10.1 g/dL (11.5-15.4) L 05/31/17 05:24 Hct 34.5 % (35.3-44.9) L 05/31/17 05:24 PT 11.4 Seconds (9.4-12.1) 05/27/17 19:49 - ABG ABG results: PT/INR, D-dimer PT 11.4 Seconds (9.4-12.1) 05/27/17 19:49
[2017-05-30] MEDS ORDERED: Tetracaine/Benzocaine/Butamben 200MG/SPRAY (100SPY/BOT) ONE (14:28)
--- NOTE | 2017-05-30 14:45 | Anesthesia Evaluation PreOp ---
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 History: Denies Any Significant HX Other Medical History: Bleeding, Diabetes Type II (well controlled; oral medications only), GERD Anesthesia History: No Prior Anesthetic Complications, Past Anesthesia Alcohol Use: none Drug use: none Medications and Allergies Aspirin [Adult Low Dose Aspirin EC] 81 mg PO DAILY 09/08/15 [History] Atorvastatin Calcium 80 mg PO HS 09/08/15 [History] Pioglitazone [Actos] 45 mg PO DAILY 09/08/15 [History] Trospium Chloride [Trospium Chloride ER] 60 mg PO DAILY 09/08/15 [History] Atenolol/Chlorthalidone [Tenoretic 100 Tablet] 1 each PO DAILY 05/27/17 [History ] Ferrous Sulfate [Iron] 325 mg PO TID 05/27/17 [History] Losartan [Cozaar] 25 mg PO DAILY 05/27/17 [History] Metformin HCl [Metformin HCl ER] 1,000 mg PO DAILY 05/27/17 [History] Omeprazole [PriLOSEC] 20 mg PO DAILY 05/27/17 [History] 3 Allergy/AdvReac Type Severity Reaction Status Date / Time No Known Allergies Allergy Verified 06/23/16 08:55 - Meds/Allergy Pre-op Review Medications Reviewed: Yes Allergies Reviewed: Yes Beta Blockers on Current Med List: Yes If Beta Blockers taken, Date/Time (Last Dose taken): 05-30-17 atenolol 9:39 Anesthesia Results - Labs 05/30/17 03:55 05/30/17 03:55 Anesthesia Exam Last Vital Signs Temp 97.7 F 05/30/17 14:11 Pulse 67 05/30/17 14:11 Resp 18 05/30/17 14:11 BP 156/79 05/30/17 14:11 Pulse Ox 98 05/30/17 14:11 Weight: 81 kg NPO (# of Hours): > 8 hrs - HEENT Pupil (Motor): Pupils equal, EOMI Mallampati: II Teeth: Poor dentition Oral Opening: Greater than 3 - MACHINE FIXER LOC: Oriented MACHINE FIXER Motor: Normal RUE, Normal LUE, Normal RLE, Normal LLE, Normal Face - Cardiac Rhythm: Regular Murmur: None - Pulmonary Breath Sounds: bilateral Clear Respiratory Effort: Symmetrical Anesthesia Assess/Plan ASA Score: 3 Modified Mingus Scale for Level of Consciousness: Cooperative, oriented, and tranquil Anesthetic Plan: MAC Monitoring Plan: Standard Monitors Recovery Plan: PACU
[2017-05-30] MEDS ORDERED: SODIUM CHLORIDE/NAHCO3/KCL/PEG 4,000 ML SOLN.RECON PO ONE (15:07)
--- NOTE | 2017-05-30 15:40 | Internal Med Progress Note ---
Date of Encounter: 05/30/17 Time of Encounter: 15:37 - Assessment and plan (1) Symptomatic anemia Current Visit: Yes Status: Acute Assessment and plan: Kaia Vaca is a 77 old female with past medical history diabetes and hypertension who presented to [facility] on 05/27/2017 with complaints of lightheadedness and dizziness. She was found to be anemic with Hgb of 7.4. She was transfused 2 units and placed in observation status for further workup and treatment. 1. Symptomatic anemia: Has been weak, tired and fatigue for several weeks prior to presentation. Hgb 7.4 on arrival. Received 2 units PRBC and EGD. Occult stool negative, no active bleeding. Repeat Hgb 9.1. Monitor H&H, transfuse for Hgb less than 8, IV PPI. EGD on 05/30 results pending. Evaluated by GI who noted may need colonoscopy versus capsule study depending on results of EGD. 2. Hypokalemia: With hypomagnesium. Replace PRN 3. RADHA: Creatinine 1.2. No history of renal disease. Likely secondary to hypovolemia. Cont IV fluids. Monitor renal function 4. Elevated lactic acid: Lactic acid peaked at 2.8 and trended down. No obvious infectious source. WBC 6.9, no tachycardia, no hypotension. 5. CAD: per hx. Hold ASA. Cont home BB, statin 6. DVT prophylaxis: SCDs (2) CAD (coronary artery disease) Current Visit: Yes Status: Acute Qualifiers: Coronary Disease-Associated Artery/Lesion type: [place] artery [place] vs. transplanted heart: [place] heart Associated angina: without angina Qualified Code(s): I25.10 - Atherosclerotic heart disease of [place] coronary artery without angina pectoris (3) Hypokalemia Current Visit: Yes Status: Acute (4) Diabetes Current Visit: Yes Status: Acute Qualifiers: Diabetes mellitus type: type 2 Diabetes mellitus complication status: without complication Diabetes mellitus manager long term care insulin use: without fdc use Qualified Code(s): E11.9 - Type 2 diabetes mellitus without complications (5) Hypertension Current Visit: Yes Status: Acute Qualifiers: Hypertension type: essential hypertension Qualified Code(s): I10 - Essential (primary) hypertension - Subjective Interval history: Seen and examined at bedside; says she had a fitful night. Slept well. No hematochezia or melena. No chest pain or shortness of breath. Still feels weak and tired but significantly improved. - Constitutional Vitals: Temp Pulse Resp BP Pulse Ox 97.7 F 67 18 156/79 98 05/30/17 14:11 05/30/17 14:11 05/30/17 14:11 05/30/17 14:11 05/30/17 14:11 General appearance: Present: A&O X 3, morbidly obese, no acute distress - Head Head exam: Present: atraumatic, normocephalic - Eye Eye exam: Present: PERRL, conjuntiva pink, sclera anicteric Pupils: Present: PERRL - Neck Neck exam general surgery: Present: supple, trachea midline. Absent: lymphadenopathy - Respiratory Respiratory exam: Present: CTAB. Absent: accessory muscle use, rales, rhonchi, wheezes - Cardiovascular Cardiovascular exam: Present: RRR, +S1, +S2. Absent: diastolic murmur, gallop, rubs, systolic murmur - GI/Abdominal GI/Abdominal exam: Present: normal bowel sounds, soft, no peritoneal signs. Absent: distended, tenderness - Extremities Exam Extremities exam: Present: warm, radial pulses palpable and symmetrical. Absent : calf tenderness, cyanotic, pedal edema - Neurological Exam Neurological exam: Present: CN II-XII intact, oriented X3, no focal deficits. Absent: pronater drift, facial droop, speech deficit - Skin Skin exam: Present: dry, intact Internal Medicine: Result - Labs CBC & Chem 7: 05/30/17 03:55 05/30/17 03:55 Labs: Short CBC 05/30/17 Range/Units 03:55 WBC 6.0 (4.3-11.1) K/mcL Hgb 9.1 L (11.5-15.4) g/dL Hct 31.0 L (35.3-44.9) % Plt Count 200 (140-400) K/mcL BMP 05/30/17 03:55 Sodium 142 Potassium 3.5 Chloride 110 H Carbon Dioxide 22 BUN 13 Creatinine 1.18 H Glucose 118 H Calcium 8.4 L - ABG Interpretation ABG results: PT/INR, D-dimer PT 11.4 Seconds (9.4-12.1) 05/27/17 19:49 Consult Discharge Plan - Plan Referrals: Cecille Mary MD [Primary Care Provider] -
[2017-05-30] MEDS: 0.9 % Sodium Chloride 1,000 ML IVC SCH ×3 (16:14→20:02)
[2017-05-31] MEDS: Pantoprazole 40 MG VIAL IVP SCH ×2 (05:50→16:04)
[2017-05-31 05:53] LABS: Hematocrit 34.5 % (35.3-44.9); Hemoglobin 10.1 g/dL (11.5-15.4); Mean Corpuscular HGB Conc 29.3 g/dL (31.6-35.5); Mean Corpuscular Hemoglobin 23.9 pg (28.0-33.3); Mean Corpuscular Volume 81.8 fL (83.0-100.0); Mean Platelet Volume 10.9 fL (9.4-12.4); Platelet Count 208 K/mcL (140-400); Red Blood Count 4.22 M/mcL (3.82-4.97); Red Cell Distribution Width 24.9 % (11.5-14.5)
[2017-05-31 06:09] LABS: BUN/Creatinine Ratio 11 (6-26); Blood Urea Nitrogen 10 mg/dL (7-20); Carbon Dioxide 23 mEq/L (19-29); Chloride 110 mEq/L (98-109); Glucose 95 mg/dL (70-99); Potassium 3.7 mEq/L (3.5-4.5); Sodium 143 mEq/L (136-145); eGFR For African Americans > 60 (> 60); eGFR For Non-African Americans 57 (> 60)
[2017-05-31 06:10] LABS: Calcium 8.7 mg/dL (8.6-10.8); Magnesium 1.4 mg/dL (1.6-2.6); Osmolality,Calculated 295 (280-300)
[2017-05-31] MEDS: 0.9 % Sodium Chloride 1,000 ML IVC SCH (06:45)
[2017-05-31 08:56] LABS: Magnesium 1.6 mg/dL (1.6-2.6)
[2017-05-31] MEDS: Insulin LISPRO 300 UNITS/3 ML VIAL SQ SCH ×3 (09:08→16:43)
--- NOTE | 2017-05-31 15:20 | Discharge Summary ---
Date of Encounter: 05/31/17 Time of Encounter: 15:21 - Discharge Diagnosis (1) Symptomatic anemia Priority: Primary Status: Acute Comments: Kaia Vaca is a 77 old female with past medical history diabetes and hypertension who presented to [facility] on 05/27/2017 with complaints of lightheadedness and dizziness. She was found to be anemic with Hgb of 7.4. She was transfused 2 units and placed in observation status for further workup and treatment. 1. Symptomatic anemia: Has been weak, tired and fatigue for several weeks prior to presentation. Hgb 7.4 on arrival. Received 2 units PRBC in ED. Occult stool negative, no active bleeding. EGD with esophagitis, gastroparesis , no evidence of bleeding. C-scope with polyps, internal hemorrhoids and diverticula, no evidence of bleeding. Hgb 10.1 at discharge. Okay to resume ASA per GI. Cont PPI, iron supplementation. Will need to follow up with GI in 2 weeks for likely capsule study and possible repeat C-scope. 2. Gastroparesis: EGD with evidence of gastroparesis. Patient declined pharmacological treatment at this time. Prefers to work on glycemic control and dietary changes. She will discuss with GI at follow-up appointment. 3. Hypokalemia: With hypomagnesium. Both intermittently replaced during hospitalization. Recommend repeat CMP with PCP within 3-5 days. 4. RADHA: Creatinine 1.2. No history of renal disease. Suspect prerenal etiology with hypovolemia. Normalized with IV fluids. Cr 0.9 at discharge. 5. CAD: per hx. Cont home ASA, BB, statin. 6. Hypertension: per hx. continue home BP medications. 7. Diabetes: per hx. Cont home diabetes medication regimen (2) CAD (coronary artery disease) Priority: Primary Status: Acute Qualifiers: Coronary Disease-Associated Artery/Lesion type: [place] artery [place] vs. transplanted heart: [place] heart Associated angina: without angina Qualified Code(s): I25.10 - Atherosclerotic heart disease of [place] coronary artery without angina pectoris (3) Hypokalemia Priority: Primary Status: Acute (4) Diabetes Priority: Primary Status: Acute Qualifiers: Diabetes mellitus type: type 2 Diabetes mellitus complication status: without complication Diabetes mellitus assistant terminal manager insulin use: without assistant terminal manager use Qualified Code(s): E11.9 - Type 2 diabetes mellitus without complications (5) Hypertension Priority: Primary Status: Acute Qualifiers: Hypertension type: essential hypertension Qualified Code(s): I10 - Essential (primary) hypertension - Discharge Medications Home Medications: Aspirin [Adult Low Dose Aspirin EC] 81 mg PO DAILY 09/08/15 [History] Atorvastatin Calcium 80 mg PO HS 09/08/15 [History] Pioglitazone [Actos] 45 mg PO DAILY 09/08/15 [History] Trospium Chloride [Trospium Chloride ER] 60 mg PO DAILY 09/08/15 [History] Atenolol/Chlorthalidone [Tenoretic 100 Tablet] 1 each PO DAILY 05/27/17 [History ] Ferrous Sulfate [Iron] 325 mg PO TID 05/27/17 [History] Losartan [Cozaar] 25 mg PO DAILY 05/27/17 [History] Metformin HCl [Metformin HCl ER] 1,000 mg PO DAILY 05/27/17 [History] Omeprazole [PriLOSEC] 40 mg PO BIDAC capsule. 05/31/17 [Rx] Allergies/Adverse Reactions: 3 Allergy/AdvReac Type Severity Reaction Status Date / Time No Known Allergies Allergy Verified 06/23/16 08:55 Date of admission: 05/27/17 23:16 Primary care physician: Cecille Mary MD Discharging clinician: Michelle Richardson Anticipated date of discharge: 05/31/17 - Patient Status Disposition: Home, Self-Care Condition: Good Functional capacity at discharge: independent ambulation Overall status at discharge: patient is back to baseline - Discharge Instructions Instructions: Gastrointestinal Bleeding (DC), Iron Deficiency Anemia (DC), Diabetic gastroparesis (DC) Follow Up With: Cecille Mary MD [Primary Care Provider] - Joi Callaway MD [Partnered Physician] - Additional Instructions: Please call your family doctor the next business day within 24 hours until follow-up appointment. Next Please follow up with Dr. Callaway (GI) within 1-2 weeks - Diet and Activity Activity: increase activity as tolerated Diet: advance to your usual diet Interval History: Seen and examined at bedside. Patient feels significantly better and would like to go home today. She is aware of EGD and colonoscopy results. She is aware that she will need to follow-up with her primary care doctor for recommended repeat lab draws and GI within 1-2 weeks. She has no complaints at time of discharge. Hospital course: See assessment and plan for hospital course - Time Spent with Patient Total time spent providing and/or coordinating discharge services: - Constitutional Vitals: Temp Pulse Resp BP Pulse Ox 98.6 F 72 18 165/85 97 05/31/17 11:30 05/31/17 12:13 05/31/17 12:13 05/31/17 12:13 05/31/17 12:13 General appearance: Present: A&O X 3, morbidly obese, no acute distress - Head Head exam: Present: atraumatic, normocephalic - Eye Eye exam: Present: PERRL, conjuntiva pink, sclera anicteric Pupils: Present: PERRL - Neck Neck exam general surgery: Present: supple, trachea midline. Absent: lymphadenopathy - Respiratory Respiratory exam: Present: CTAB. Absent: accessory muscle use, rales, rhonchi, wheezes - Cardiovascular Cardiovascular exam: Present: RRR, +S1, +S2. Absent: diastolic murmur, gallop, rubs, systolic murmur - GI/Abdominal GI/Abdominal exam: Present: normal bowel sounds, soft, no peritoneal signs. Absent: distended, tenderness - Extremities Exam Extremities exam: Present: warm, radial pulses palpable and symmetrical. Absent : calf tenderness, cyanotic, pedal edema - Neurological Exam Neurological exam: Present: CN II-XII intact, oriented X3, no focal deficits. Absent: pronater drift, facial droop, speech deficit - Skin Skin exam: Present: dry, intact
[2017-05-31 15:42] VITALS: BP 158/81
[2017-05-31] MEDS ORDERED: *HR* Propofol 500 MG/50 ML BOTTLE IVC ONE (17:38)
[2017-05-31] MEDS ORDERED: Lidocaine -MPF 2% 5 ML VIAL INFILT ONE (17:38)
--- NOTE | 2017-05-31 21:26 | Electrocardiograph Report ---
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
[2017-06-02 07:17] LABS: Immunoglobulin A (CELIAC) 205 mg/dL (68-408)
[2017-06-02 14:10] LABS: Tissue Transglutaminase IgA 1 U/mL (0-3)
[2017-06-06 07:58] LABS: Celiac Disease Dual Antigen 5 Units (0-19)
== END 2017-05-31 17:39 | disposition home or self-care (01) ==
LOC: 3BNU 18:14 → EMEROO 18:14 → 3BNU 23:59
PROVIDERS: ADMIT Pediatrics; ATTEND Registered Nurse
PROC: ENDOEBX (2017-05-31 12:00)

== ENCOUNTER 2019-08-26 02:55 | Inpatient (IN) ==
[2019-08-26] MEDS ORDERED: Naloxone 0.4 MG/ML INJ IVP PRN (12:15)
[2019-08-26] MEDS ORDERED: Dextrose Gel 15 GM/37.5 ML TUBE PO PRN (14:23)
[2019-08-26 15:58] LABS: Digoxin 1.3 ng/mL (0.8-2.0)
[2019-08-26] MEDS: Insulin LISPRO 300 UNITS/3 ML VIAL SQ SCH (17:08)
[2019-08-26] MEDS ORDERED: Piperacillin/Tazobactam 3.375 GM in 0.9 % Sodium Chloride Mini Bag 100 ML IVPB SCH (17:32)
[2019-08-26] MEDS ORDERED: Insulin LISPRO 300 UNITS/3 ML VIAL SQ SCH (21:00)
[2019-08-26] MEDS: *HR* OxyCODONE Immed Rel 5 MG TABLET PO PRN (21:40)
[2019-08-27 03:12] LABS: Basophils % 0.1 %; Eosinophils % 0.2 %; Hematocrit 31.2 % (35.3-44.9); Immature Granulocytes % 0.5 % (0-4); Mean Corpuscular HGB Conc 32.1 g/dL (31.6-35.5); Mean Corpuscular Hemoglobin 25.6 pg (28.0-33.3); Mean Platelet Volume 8.9 fL (9.4-12.4); Monocytes # 0.7 K/mcL (0.0-1.3); Monocytes % 5.9 %; Neutrophils # 10.7 K/mcL (1.6-8.9); Platelet Count 388 K/mcL (140-400); Red Cell Distribution Width 19.9 % (11.5-14.5); Segmented Neutrophils % 85.3 %; White Blood Count 12.5 K/mcL (4.3-11.1)
[2019-08-27] MEDS: Piperacillin/Tazobactam 3.375 GM in 0.9 % Sodium Chloride Mini Bag 100 ML IVPB SCH ×3 (03:30→20:46)
[2019-08-27 03:32] LABS: BUN/Creatinine Ratio 34 (6-26); Blood Urea Nitrogen 23 mg/dL (8-23); Calcium 7.6 mg/dL (8.6-10.3); Carbon Dioxide 26 mEq/L (23-29); Chloride 101 mEq/L (98-107); Glucose 82 mg/dL (70-105); Osmolality,Calculated 287 (280-300); Sodium 137 mEq/L (136-145); eGFR For African Americans > 60 (> 60); eGFR For Non-African Americans > 60 (> 60)
[2019-08-27] MEDS: Insulin LISPRO 300 UNITS/3 ML VIAL SQ SCH ×4 (07:43→20:46)
[2019-08-27] MEDS: *HR* Digoxin 0.125 MG TABLET PO SCH (09:36)
[2019-08-27] MEDS: *HR* OxyCODONE Immed Rel 5 MG TABLET PO PRN ×2 (09:36→16:38)
[2019-08-27] MEDS: Tolterodine LA (24 HR) 4 MG CAP.ER.24H PO SCH (09:36)
[2019-08-27] MEDS ORDERED: Lidocaine -MPF 1% 5 ML AMPUL INFILT ONE (10:48)
[2019-08-27] MEDS ORDERED: Isovue-370 500 ML BOTTLE IVP ONE (11:04)
[2019-08-27] MEDS: 0.9 % Sodium Chloride 1,000 ML IVC SCH (11:21)
[2019-08-27 12:25] LABS: Iron < 10 mcg/dL (50-170); Transferrin 78 mg/dL (203-362)
[2019-08-27] MEDS ORDERED: D10% in Water 500 ML IVC PRN (12:37)
[2019-08-27 12:45] LABS: Folate 12.5 ng/mL (3.0-16.0)
[2019-08-27] MEDS ORDERED: Clinimix E 5%-15% SOLUTION 2,000 ML with MVI, adult with vitamin K 10 ML IVC SCH (17:00)
[2019-08-27] MEDS: *HR* Heparin 5,000 UNIT/ML VIAL SQ SCH (18:37)
[2019-08-28] MEDS: Insulin LISPRO 300 UNITS/3 ML VIAL SQ SCH ×6 (00:25→23:32)
[2019-08-28] MEDS: 0.9 % Sodium Chloride 1,000 ML IVC SCH ×2 (03:26→16:59)
[2019-08-28] MEDS: Piperacillin/Tazobactam 3.375 GM in 0.9 % Sodium Chloride Mini Bag 100 ML IVPB SCH ×3 (03:27→23:32)
[2019-08-28 04:44] LABS: Basophils % 0.1 %; Eosinophils # 0.1 K/mcL (0.0-0.6); Eosinophils % 0.7 %; Hematocrit 27.2 % (35.3-44.9); Hemoglobin 9.1 g/dL (11.5-15.4); Immature Granulocytes % 0.2 % (0-4); Lymphocytes # 0.9 K/mcL (0.6-4.6); Lymphocytes % 9.9 %; Mean Corpuscular HGB Conc 33.5 g/dL (31.6-35.5); Mean Corpuscular Hemoglobin 25.9 pg (28.0-33.3); Monocytes # 0.7 K/mcL (0.0-1.3); Neutrophils # 7.1 K/mcL (1.6-8.9); Platelet Count 372 K/mcL (140-400); Red Blood Count 3.52 M/mcL (3.82-4.97); Red Cell Distribution Width 20.3 % (11.5-14.5); Segmented Neutrophils % 81.1 %
[2019-08-28 04:45] LABS: Mean Corpuscular Volume 77.3 fL (83.0-100.0); White Blood Count 8.8 K/mcL (4.3-11.1)
[2019-08-28 05:04] LABS: BUN/Creatinine Ratio 32 (6-26); Blood Urea Nitrogen 20 mg/dL (8-23); Calcium 7.1 mg/dL (8.6-10.3); Carbon Dioxide 22 mEq/L (23-29); Chloride 100 mEq/L (98-107); Glucose 135 mg/dL (70-105); Magnesium 1.5 mg/dL (1.6-2.6); Osmolality,Calculated 277 (280-300); Phosphorous 2.2 mg/dL (2.7-4.5); Potassium 3.4 mEq/L (3.5-5.1); Sodium 131 mEq/L (136-145); eGFR For African Americans > 60 (> 60); eGFR For Non-African Americans > 60 (> 60)
[2019-08-28] MEDS: *HR* Heparin 5,000 UNIT/ML VIAL SQ SCH ×2 (05:16→17:05)
[2019-08-28] MEDS ORDERED: cefOXitin 1,000 MG, 0.9 % Sodium Chloride 1,000 ML IR ONE ×2 (06:00→15:03)
[2019-08-28] MEDS ORDERED: Potassium Chloride Elixir 20 MEQ/15 ML UDC PO ONE (07:33)
[2019-08-28] MEDS: Tolterodine LA (24 HR) 4 MG CAP.ER.24H PO SCH (08:16)
[2019-08-28] MEDS: *HR* OxyCODONE Immed Rel 5 MG TABLET PO PRN (08:17)
[2019-08-28] MEDS: *HR* Digoxin 0.125 MG TABLET PO SCH (08:17)
[2019-08-28] MEDS ORDERED: CefOXitin 1,000 MG VIAL ONE (09:40)
[2019-08-28] MEDS ORDERED: *HR* Midazolam HCl 2 MG/2 ML VIAL ONE (10:05)
[2019-08-28] MEDS ORDERED: Lidocaine -MPF 2% 2 ML VIAL ONE ×2 (10:05)
[2019-08-28] MEDS ORDERED: *HR* Succinylcholine 200 MG/10 ML VIAL IVP ONE (10:05)
[2019-08-28] MEDS ORDERED: *HR* Propofol 200 MG/20 ML VIAL IVP ONE (10:05)
[2019-08-28] MEDS ORDERED: *HR* PHENYLEPHRINE 1,000 MCG/10 ML SYRINGE IVP ONE ×3 (10:05→11:23)
[2019-08-28] MEDS ORDERED: Ondansetron 4 MG/2 ML VIAL ONE (10:05)
[2019-08-28] MEDS ORDERED: *HR* FentaNYL (PF) 100 MCG/2 ML VIAL ONE (10:05)
[2019-08-28] MEDS ORDERED: Lidocaine HCL 4 ML Topical Solution (Laryng-O-Jet Kit Sterile Pak) TP ONE (10:05)
[2019-08-28] MEDS ORDERED: Dexamethasone 4 MG/ML VIAL ONE (10:05)
[2019-08-28] MEDS ORDERED: *HR* Rocuronium Bromide 50 MG/5 ML VIAL ONE (10:05)
[2019-08-28] MEDS ORDERED: *HR* Remifentanil 2 MG VIAL IVP ONE (10:07)
[2019-08-28] MEDS ORDERED: Potassium Phosphate 44 MEQ in 0.9 % Sodium Chloride 250 ML IVPB ONE ×2 (11:24→15:03)
[2019-08-28] MEDS ORDERED: *HR* Vasopressin 20 UNIT/ML VIAL ONE (11:32)
[2019-08-28] MEDS ORDERED: *HR* HYDROMORPHONE 2 MG/ML VIAL ONE (12:53)
[2019-08-28] MEDS ORDERED: *HR* Promethazine 25 MG/ML VIAL IVP PRN ×2 (12:58→15:03)
[2019-08-28] MEDS ORDERED: Ondansetron 4 MG/2 ML VIAL IVP ONE ×2 (12:58→15:03)
[2019-08-28] MEDS ORDERED: Morphine Sulfate 2 MG/ML SYRINGE IVP PRN ×2 (12:58→15:03)
[2019-08-28] MEDS ORDERED: *HR* OxyCODONE Immed Rel 5 MG TABLET PO PRN (15:03)
[2019-08-28] MEDS ORDERED: Naloxone 0.4 MG/ML INJ IVP PRN (15:03)
[2019-08-28] MEDS ORDERED: D10% in Water 500 ML IVC PRN (15:03)
[2019-08-28] MEDS ORDERED: Clinimix E 5%-15% SOLUTION 2,000 ML with MVI, adult with vitamin K 10 ML IVC SCH ×3 (15:03→17:00)
[2019-08-28] MEDS ORDERED: Dextrose Gel 15 GM/37.5 ML TUBE PO PRN (15:03)
[2019-08-28] MEDS ORDERED: Amiodarone Premix 360 MG/200 ML BAG IVC ONE (17:49)
[2019-08-28] MEDS ORDERED: Acetaminophen IV 1,000 MG/100 ML INFUS..BTL IVPB SCH (18:00)
[2019-08-29] MEDS: Amiodarone Premix 360 MG/200 ML BAG IVC SCH ×2 (00:30→14:10)
[2019-08-29 03:45] LABS: Basophils % 0.2 %; Immature Granulocytes % 0.8 % (0-4); Lymphocytes # 0.7 K/mcL (0.6-4.6); Lymphocytes % 5.5 %; Mean Corpuscular Volume 81.2 fL (83.0-100.0); Mean Platelet Volume 9.2 fL (9.4-12.4); Monocytes # 0.7 K/mcL (0.0-1.3); Monocytes % 5.8 %; Neutrophils # 10.8 K/mcL (1.6-8.9); Platelet Count 274 K/mcL (140-400); Red Blood Count 4.31 M/mcL (3.82-4.97); Red Cell Distribution Width 20.2 % (11.5-14.5); Segmented Neutrophils % 87.7 %; White Blood Count 12.3 K/mcL (4.3-11.1)
[2019-08-29 03:49] LABS: Hemoglobin 11.2 g/dL (11.5-15.4)
[2019-08-29 04:05] LABS: Anisocytosis 1+ (Not Present); Platelet Estimate Normal (Normal); Reactive Lymphocytes Present (Not Present)
[2019-08-29 04:18] LABS: BUN/Creatinine Ratio 29 (6-26); Blood Urea Nitrogen 24 mg/dL (8-23); Carbon Dioxide 20 mEq/L (23-29); Chloride 101 mEq/L (98-107); Glucose 280 mg/dL (70-105); Magnesium 1.6 mg/dL (1.6-2.6); Osmolality,Calculated 286 (280-300); Phosphorous 4.4 mg/dL (2.7-4.5); Potassium 4.5 mEq/L (3.5-5.1); Sodium 131 mEq/L (136-145); eGFR For African Americans > 60 (> 60); eGFR For Non-African Americans > 60 (> 60)
[2019-08-29] MEDS: Insulin LISPRO 300 UNITS/3 ML VIAL SQ SCH ×6 (04:18→23:59)
[2019-08-29] MEDS: *HR* Heparin 5,000 UNIT/ML VIAL SQ SCH ×2 (05:17→17:02)
[2019-08-29] MEDS: Tolterodine LA (24 HR) 4 MG CAP.ER.24H PO SCH (08:30)
[2019-08-29] MEDS: Piperacillin/Tazobactam 3.375 GM in 0.9 % Sodium Chloride Mini Bag 100 ML IVPB SCH ×3 (08:41→23:52)
[2019-08-29] MEDS ORDERED: *HR* Digoxin 0.125 MG TABLET PO SCH (09:00)
[2019-08-29] MEDS ORDERED: *HR* Digoxin 0.125 MG TABLET GTUBE SCH (10:45)
[2019-08-29] MEDS: 0.9 % Sodium Chloride 1,000 ML IVC SCH (11:41)
[2019-08-29] MEDS: *HR* Metoprolol 5 MG/5 ML VIAL IVP SCH (17:00)
[2019-08-29] MEDS ORDERED: Clinimix E 5%-15% SOLUTION 2,000 ML with MVI, adult with vitamin K 10 ML IVC SCH (17:00)
[2019-08-30] MEDS: *HR* Metoprolol 5 MG/5 ML VIAL IVP SCH ×5 (00:17→23:23)
[2019-08-30] MEDS: Amiodarone Premix 360 MG/200 ML BAG IVC SCH ×2 (01:08→14:57)
[2019-08-30] MEDS: 0.9 % Sodium Chloride 1,000 ML IVC SCH ×2 (02:54→15:53)
[2019-08-30 03:46] LABS: BUN/Creatinine Ratio 32 (6-26); Blood Urea Nitrogen 23 mg/dL (8-23); Calcium 6.6 mg/dL (8.6-10.3); Carbon Dioxide 19 mEq/L (23-29); Chloride 104 mEq/L (98-107); Glucose 175 mg/dL (70-105); Magnesium 1.6 mg/dL (1.6-2.6); Osmolality,Calculated 280 (280-300); Phosphorous 3.2 mg/dL (2.7-4.5); Potassium 3.4 mEq/L (3.5-5.1); Sodium 131 mEq/L (136-145); eGFR For African Americans > 60 (> 60); eGFR For Non-African Americans > 60 (> 60)
[2019-08-30] MEDS: Insulin LISPRO 300 UNITS/3 ML VIAL SQ SCH ×6 (04:35→23:25)
[2019-08-30 04:52] LABS: Basophils % 0.1 %; Hemoglobin 9.3 g/dL (11.5-15.4); Lymphocytes # 0.6 K/mcL (0.6-4.6); Lymphocytes % 4.5 %; Mean Corpuscular HGB Conc 32.1 g/dL (31.6-35.5); Mean Corpuscular Hemoglobin 26.1 pg (28.0-33.3); Mean Corpuscular Volume 81.5 fL (83.0-100.0); Mean Platelet Volume 9.1 fL (9.4-12.4); Monocytes # 0.8 K/mcL (0.0-1.3); Platelet Count 246 K/mcL (140-400); Red Blood Count 3.56 M/mcL (3.82-4.97); Red Cell Distribution Width 20.5 % (11.5-14.5); Segmented Neutrophils % 88.4 %
[2019-08-30 05:11] LABS: Neutrophils # 12.4 K/mcL (1.6-8.9)
[2019-08-30] MEDS: *HR* Heparin 5,000 UNIT/ML VIAL SQ SCH ×2 (05:27→16:45)
[2019-08-30 05:47] LABS: Anisocytosis 1+ (Not Present); Platelet Estimate Normal (Normal)
[2019-08-30] MEDS: Tolterodine LA (24 HR) 4 MG CAP.ER.24H PO SCH (08:48)
[2019-08-30] MEDS ORDERED: Potassium Chloride 40 MEQ, Lidocaine 1% 2 ML in 0.9 % Sodium Chloride 500 ML IVPB ONE ×2 (08:48→09:33)
[2019-08-30] MEDS: Piperacillin/Tazobactam 3.375 GM in 0.9 % Sodium Chloride Mini Bag 100 ML IVPB SCH ×3 (09:05→23:23)
[2019-08-30] MEDS ORDERED: 0.9 % Sodium Chloride 500 ML IVC ONE (14:15)
[2019-08-30 15:55] LABS: Hematocrit 27.3 % (35.3-44.9); Hemoglobin 8.3 g/dL (11.5-15.4)
[2019-08-30] MEDS ORDERED: Clinimix E 5%-15% SOLUTION 2,000 ML with MVI, adult with vitamin K 10 ML IVC SCH (17:00)
[2019-08-31] MEDS: Amiodarone Premix 360 MG/200 ML BAG IVC SCH ×2 (02:32→14:55)
[2019-08-31] MEDS: Insulin LISPRO 300 UNITS/3 ML VIAL SQ SCH ×6 (04:31→23:47)
[2019-08-31 04:59] LABS: Basophils % 0.1 %; Eosinophils % 0.2 %; Hemoglobin 8.5 g/dL (11.5-15.4); Immature Granulocytes % 1.2 % (0-4); Lymphocytes # 0.5 K/mcL (0.6-4.6); Lymphocytes % 4.8 %; Mean Corpuscular HGB Conc 32.7 g/dL (31.6-35.5); Mean Corpuscular Hemoglobin 26.1 pg (28.0-33.3); Mean Corpuscular Volume 79.8 fL (83.0-100.0); Mean Platelet Volume 9.4 fL (9.4-12.4); Monocytes # 0.4 K/mcL (0.0-1.3); Monocytes % 3.7 %; Neutrophils # 10.1 K/mcL (1.6-8.9); Platelet Count 248 K/mcL (140-400); Red Blood Count 3.26 M/mcL (3.82-4.97); Red Cell Distribution Width 20.8 % (11.5-14.5); White Blood Count 11.2 K/mcL (4.3-11.1)
[2019-08-31 05:15] LABS: Alanine Aminotransferase 8 Units/L (7-52); Albumin 1.6 g/dL (3.5-5.7); Albumin/Globulin Ratio 0.7 (1.1-2.2); Alkaline Phosphatase 65 Units/L (34-104); Aspartate Amino Transferase 13 Units/L (13-39); BUN/Creatinine Ratio 33 (6-26); Bilirubin,Total 0.3 mg/dL (0.3-1.0); Blood Urea Nitrogen 21 mg/dL (8-23); Calcium 6.7 mg/dL (8.6-10.3); Carbon Dioxide 19 mEq/L (23-29); Chloride 106 mEq/L (98-107); Globulin 2.3 g/dL (2.4-3.5); Glucose 181 mg/dL (70-105); Magnesium 1.7 mg/dL (1.6-2.6); Osmolality,Calculated 282 (280-300); Phosphorous 2.6 mg/dL (2.7-4.5); Potassium 3.2 mEq/L (3.5-5.1); Sodium 132 mEq/L (136-145); Total Protein 3.9 g/dL (6.4-8.9); eGFR For African Americans > 60 (> 60); eGFR For Non-African Americans > 60 (> 60)
[2019-08-31] MEDS: *HR* Heparin 5,000 UNIT/ML VIAL SQ SCH (05:23)
[2019-08-31] MEDS: Tolterodine LA (24 HR) 4 MG CAP.ER.24H PO SCH (07:36)
[2019-08-31] MEDS: 0.9 % Sodium Chloride 1,000 ML IVC SCH ×2 (07:57→23:53)
[2019-08-31] MEDS: *HR* Metoprolol 5 MG/5 ML VIAL IVP SCH ×3 (07:58→23:55)
[2019-08-31] MEDS: Piperacillin/Tazobactam 3.375 GM in 0.9 % Sodium Chloride Mini Bag 100 ML IVPB SCH ×3 (07:58→23:56)
[2019-08-31] MEDS ORDERED: Potassium Chloride 40 MEQ, Lidocaine 1% 2 ML in D5% in Water 500 ML IVPB ONE (08:26)
[2019-08-31] MEDS ORDERED: Acetaminophen IV 1,000 MG/100 ML INFUS..BTL IVPB ONE (09:46)
[2019-08-31] MEDS ORDERED: Acetaminophen IV 1,000 MG/100 ML INFUS..BTL IVPB SCH (12:00)
[2019-08-31] MEDS ORDERED: *HR* Heparin 5,000 UNIT/ML VIAL IVP PRN ×2 (12:11)
[2019-08-31 14:23] LABS: INR 1.2; Prothrombin Time 13.6 Seconds (9.4-12.1)
[2019-08-31] MEDS: Heparin 25,000 UNIT/250 ML D5W 25,000 UNIT/250 ML IV.SOLN IVC SCH (14:48)
[2019-08-31] MEDS ORDERED: Clinimix E 5%-15% SOLUTION 2,000 ML with MVI, adult with vitamin K 10 ML IVC SCH (17:00)
[2019-08-31] MEDS: Acetaminophen IV 1,000 MG/100 ML INFUS..BTL IVPB SCH ×3 (17:59→23:53)
[2019-09-01] MEDS: Insulin LISPRO 300 UNITS/3 ML VIAL SQ SCH ×5 (04:45→20:51)
[2019-09-01 05:15] LABS: Basophils % 0.1 %; Eosinophils # 0.1 K/mcL (0.0-0.6); Hematocrit 28.1 % (35.3-44.9); Hemoglobin 9.4 g/dL (11.5-15.4); Immature Granulocytes % 1.3 % (0-4); Lymphocytes # 0.6 K/mcL (0.6-4.6); Lymphocytes % 5.7 %; Mean Corpuscular HGB Conc 33.5 g/dL (31.6-35.5); Mean Corpuscular Hemoglobin 26.5 pg (28.0-33.3); Mean Corpuscular Volume 79.2 fL (83.0-100.0); Mean Platelet Volume 9.4 fL (9.4-12.4); Monocytes # 0.3 K/mcL (0.0-1.3); Monocytes % 3.4 %; Neutrophils # 8.6 K/mcL (1.6-8.9); Platelet Count 249 K/mcL (140-400); Red Blood Count 3.55 M/mcL (3.82-4.97); Segmented Neutrophils % 88.5 %; White Blood Count 9.7 K/mcL (4.3-11.1)
[2019-09-01 05:33] LABS: BUN/Creatinine Ratio 30 (6-26); Blood Urea Nitrogen 21 mg/dL (8-23); Calcium 7.4 mg/dL (8.6-10.3); Carbon Dioxide 19 mEq/L (23-29); Chloride 103 mEq/L (98-107); Glucose 250 mg/dL (70-105); Osmolality,Calculated 283 (280-300); Phosphorous 3.1 mg/dL (2.7-4.5); Potassium 3.4 mEq/L (3.5-5.1); Sodium 131 mEq/L (136-145); eGFR For African Americans > 60 (> 60); eGFR For Non-African Americans > 60 (> 60)
[2019-09-01] MEDS: Acetaminophen IV 1,000 MG/100 ML INFUS..BTL IVPB SCH ×4 (05:47→23:31)
[2019-09-01] MEDS: Piperacillin/Tazobactam 3.375 GM in 0.9 % Sodium Chloride Mini Bag 100 ML IVPB SCH ×3 (08:54→23:31)
[2019-09-01] MEDS: *HR* Metoprolol 5 MG/5 ML VIAL IVP SCH ×3 (08:55→23:31)
[2019-09-01] MEDS: Tolterodine LA (24 HR) 4 MG CAP.ER.24H PO SCH (08:56)
[2019-09-01] MEDS ORDERED: Potassium Chloride 40 MEQ, Lidocaine 1% 2 ML in 0.9 % Sodium Chloride 500 ML IVPB ONE (12:09)
[2019-09-01] MEDS: Heparin 25,000 UNIT/250 ML D5W 25,000 UNIT/250 ML IV.SOLN IVC SCH (13:26)
[2019-09-01] MEDS ORDERED: Clinimix E 5%-15% SOLUTION 2,000 ML with MVI, adult with vitamin K 10 ML IVC SCH (17:00)
[2019-09-01] MEDS: 0.9 % Sodium Chloride 1,000 ML IVC SCH (23:32)
[2019-09-02] MEDS: Insulin LISPRO 300 UNITS/3 ML VIAL SQ SCH ×6 (00:30→21:46)
[2019-09-02 04:32] LABS: BUN/Creatinine Ratio 34 (6-26); Blood Urea Nitrogen 22 mg/dL (8-23); Calcium 7.3 mg/dL (8.6-10.3); Carbon Dioxide 19 mEq/L (23-29); Chloride 105 mEq/L (98-107); Glucose 146 mg/dL (70-105); Magnesium 1.7 mg/dL (1.6-2.6); Osmolality,Calculated 286 (280-300); Phosphorous 2.8 mg/dL (2.7-4.5); Potassium 3.2 mEq/L (3.5-5.1); Sodium 135 mEq/L (136-145); eGFR For African Americans > 60 (> 60); eGFR For Non-African Americans > 60 (> 60)
[2019-09-02] MEDS: Acetaminophen IV 1,000 MG/100 ML INFUS..BTL IVPB SCH ×4 (05:41→23:52)
[2019-09-02] MEDS: Piperacillin/Tazobactam 3.375 GM in 0.9 % Sodium Chloride Mini Bag 100 ML IVPB SCH ×3 (08:50→23:53)
[2019-09-02] MEDS: Potassium Chloride 40 MEQ, Lidocaine 1% 2 ML in D5% in Water 500 ML IVPB SCH ×2 (08:53→19:39)
[2019-09-02] MEDS: Pantoprazole 40 MG VIAL IVP SCH (08:55)
[2019-09-02] MEDS: *HR* Metoprolol 5 MG/5 ML VIAL IVP SCH ×3 (08:55→23:52)
[2019-09-02] MEDS ORDERED: Piperacillin/Tazobactam 3.375 GM VIAL ONE (09:12)
[2019-09-02] MEDS: Tolterodine LA (24 HR) 4 MG CAP.ER.24H PO SCH (10:05)
[2019-09-02] MEDS: Heparin 25,000 UNIT/250 ML D5W 25,000 UNIT/250 ML IV.SOLN IVC SCH (10:07)
[2019-09-02] MEDS ORDERED: Clinimix E 5%-15% SOLUTION 2,000 ML with MVI, adult with vitamin K 10 ML IVC SCH (17:00)
[2019-09-03] MEDS: Insulin LISPRO 300 UNITS/3 ML VIAL SQ SCH ×5 (01:12→21:06)
[2019-09-03] MEDS: Heparin 25,000 UNIT/250 ML D5W 25,000 UNIT/250 ML IV.SOLN IVC SCH (02:53)
[2019-09-03 03:23] LABS: Basophils % 0.3 %; Eosinophils # 0.2 K/mcL (0.0-0.6); Eosinophils % 1.4 %; Hematocrit 25.1 % (35.3-44.9); Hemoglobin 8.3 g/dL (11.5-15.4); Immature Granulocytes % 12.1 % (0-4); Lymphocytes # 0.8 K/mcL (0.6-4.6); Lymphocytes % 6.7 %; Mean Corpuscular HGB Conc 33.1 g/dL (31.6-35.5); Mean Corpuscular Hemoglobin 25.9 pg (28.0-33.3); Mean Corpuscular Volume 78.2 fL (83.0-100.0); Mean Platelet Volume 10.1 fL (9.4-12.4); Monocytes # 0.6 K/mcL (0.0-1.3); Nucleated Red Blood Cells 0.8 /100 WBC (0); Platelet Count 223 K/mcL (140-400); Red Blood Count 3.21 M/mcL (3.82-4.97); Red Cell Distribution Width 21.4 % (11.5-14.5); Segmented Neutrophils % 74.5 %; White Blood Count 11.6 K/mcL (4.3-11.1)
[2019-09-03 03:24] LABS: Neutrophils # 8.6 K/mcL (1.6-8.9)
[2019-09-03 03:34] LABS: BUN/Creatinine Ratio 50 (6-26); Blood Urea Nitrogen 27 mg/dL (8-23); Calcium 7.2 mg/dL (8.6-10.3); Carbon Dioxide 20 mEq/L (23-29); Chloride 104 mEq/L (98-107); Glucose 136 mg/dL (70-105); Magnesium 1.7 mg/dL (1.6-2.6); Osmolality,Calculated 279 (280-300); Phosphorous 2.9 mg/dL (2.7-4.5); Sodium 131 mEq/L (136-145); Triglycerides 72 mg/dL (< 150); eGFR For African Americans > 60 (> 60); eGFR For Non-African Americans > 60 (> 60)
[2019-09-03 03:58] LABS: Anisocytosis 1+ (Not Present); Platelet Estimate Normal (Normal); Poikilocytosis 1+ (Not Present)
[2019-09-03] MEDS: Acetaminophen IV 1,000 MG/100 ML INFUS..BTL IVPB SCH (05:29)
[2019-09-03] MEDS: *HR* Metoprolol 5 MG/5 ML VIAL IVP SCH (09:16)
[2019-09-03] MEDS: Pantoprazole 40 MG VIAL IVP SCH (09:16)
[2019-09-03] MEDS: Piperacillin/Tazobactam 3.375 GM in 0.9 % Sodium Chloride Mini Bag 100 ML IVPB SCH ×2 (09:19→17:38)
[2019-09-03] MEDS: Tolterodine LA (24 HR) 4 MG CAP.ER.24H PO SCH (09:22)
[2019-09-03] MEDS ORDERED: Acetaminophen 325 MG TABLET PO PRN (09:37)
[2019-09-03] MEDS: 0.9 % Sodium Chloride 1,000 ML IVC SCH ×2 (13:16→13:18)
[2019-09-03] MEDS ORDERED: Clinimix E 5%-15% SOLUTION 2,000 ML with MVI, adult with vitamin K 10 ML IVC SCH (17:00)
[2019-09-04 01:22] LABS: Basophils % 0.2 %; Eosinophils # 0.1 K/mcL (0.0-0.6); Eosinophils % 0.5 %; Hemoglobin 7.2 g/dL (11.5-15.4); Immature Granulocytes % 9.7 % (0-4); Lymphocytes # 1.2 K/mcL (0.6-4.6); Mean Corpuscular HGB Conc 32.7 g/dL (31.6-35.5); Mean Corpuscular Hemoglobin 26.3 pg (28.0-33.3); Mean Corpuscular Volume 80.3 fL (83.0-100.0); Monocytes # 0.5 K/mcL (0.0-1.3); Monocytes % 4.4 %; Neutrophils # 9.3 K/mcL (1.6-8.9); Platelet Count 238 K/mcL (140-400); Red Blood Count 2.74 M/mcL (3.82-4.97); Red Cell Distribution Width 21.5 % (11.5-14.5); Segmented Neutrophils % 75.2 %; White Blood Count 12.3 K/mcL (4.3-11.1)
[2019-09-04 01:38] LABS: BUN/Creatinine Ratio 62 (6-26); Blood Urea Nitrogen 37 mg/dL (8-23); Calcium 7.5 mg/dL (8.6-10.3); Carbon Dioxide 20 mEq/L (23-29); Chloride 104 mEq/L (98-107); Glucose 130 mg/dL (70-105); Magnesium 1.6 mg/dL (1.6-2.6); Osmolality,Calculated 284 (280-300); Phosphorous 2.9 mg/dL (2.7-4.5); Potassium 4.2 mEq/L (3.5-5.1); Sodium 132 mEq/L (136-145); eGFR For African Americans > 60 (> 60); eGFR For Non-African Americans > 60 (> 60)
[2019-09-04 02:25] LABS: Anisocytosis 1+ (Not Present); Platelet Estimate Normal (Normal)
[2019-09-04 02:26] LABS: Polychromasia 1+ (Not Present)
[2019-09-04] MEDS: Insulin LISPRO 300 UNITS/3 ML VIAL SQ SCH ×7 (03:13→20:25)
[2019-09-04] MEDS: Piperacillin/Tazobactam 3.375 GM in 0.9 % Sodium Chloride Mini Bag 100 ML IVPB SCH ×2 (03:15→08:10)
[2019-09-04] MEDS: Pantoprazole 40 MG VIAL IVP SCH (08:10)
[2019-09-04] MEDS: Tolterodine LA (24 HR) 4 MG CAP.ER.24H PO SCH (08:34)
[2019-09-04] MEDS ORDERED: Metoprolol XL (24 HR) Succ 25 MG TAB.ER.24H PO SCH (09:00)
[2019-09-04] MEDS: Metoprolol XL (24 HR) Succ 25 MG TAB.ER.24H PO SCH (11:09)
[2019-09-04] MEDS: Ibuprofen 600 MG TABLET PO PRN (11:59)
[2019-09-04] MEDS: metroNIDAZOLE 500 MG TABLET PO SCH ×2 (16:04→20:28)
[2019-09-04 16:46] LABS: Hematocrit 19.3 % (35.3-44.9); Hemoglobin 6.2 g/dL (11.5-15.4)
[2019-09-04] MEDS ORDERED: Clinimix E 5%-15% SOLUTION 2,000 ML with MVI, adult with vitamin K 10 ML IVC SCH (17:00)
[2019-09-04] MEDS ORDERED: Isovue-370 500 ML BOTTLE IVP ONE (17:17)
[2019-09-04] MEDS ORDERED: *HR* Heparin 5,000 UNIT/ML VIAL SQ SCH (18:00)
[2019-09-04] MEDS ORDERED: 0.9 % Sodium Chloride 500 ML ONE (19:17)
[2019-09-05] MEDS: Insulin LISPRO 300 UNITS/3 ML VIAL SQ SCH ×6 (00:14→20:53)
[2019-09-05 01:37] LABS: Hemoglobin 9.4 g/dL (11.5-15.4)
[2019-09-05 02:03] LABS: BUN/Creatinine Ratio 67 (6-26); Blood Urea Nitrogen 44 mg/dL (8-23); Calcium 7.5 mg/dL (8.6-10.3); Carbon Dioxide 21 mEq/L (23-29); Chloride 102 mEq/L (98-107); Glucose 212 mg/dL (70-105); Magnesium 1.7 mg/dL (1.6-2.6); Osmolality,Calculated 289 (280-300); Phosphorous 3.1 mg/dL (2.7-4.5); Potassium 3.7 mEq/L (3.5-5.1); Sodium 131 mEq/L (136-145); eGFR For African Americans > 60 (> 60); eGFR For Non-African Americans > 60 (> 60)
[2019-09-05 07:58] LABS: Hematocrit 27.5 % (35.3-44.9); Hemoglobin 9.4 g/dL (11.5-15.4); Mean Corpuscular HGB Conc 34.2 g/dL (31.6-35.5); Mean Corpuscular Hemoglobin 28.7 pg (28.0-33.3); Mean Corpuscular Volume 84.1 fL (83.0-100.0); Mean Platelet Volume 9.5 fL (9.4-12.4); Nucleated Red Blood Cells 3.1 /100 WBC (0); Platelet Count 238 K/mcL (140-400); Red Blood Count 3.27 M/mcL (3.82-4.97); Red Cell Distribution Width 19.6 % (11.5-14.5); White Blood Count 15.9 K/mcL (4.3-11.1)
[2019-09-05] MEDS: 0.9 % Sodium Chloride 1,000 ML IVC SCH (08:18)
[2019-09-05] MEDS: Tolterodine LA (24 HR) 4 MG CAP.ER.24H PO SCH (08:19)
[2019-09-05] MEDS: Metoprolol XL (24 HR) Succ 25 MG TAB.ER.24H PO SCH (08:19)
[2019-09-05] MEDS: metroNIDAZOLE 500 MG TABLET PO SCH ×3 (08:19→20:53)
[2019-09-05] MEDS: Pantoprazole 40 MG VIAL IVP SCH (08:20)
[2019-09-05 08:40] LABS: Eosinophils # 0.2 K/mcL (0.0-0.6); Monocytes # 0.8 K/mcL (0.0-1.3); Neutrophils # 11.6 K/mcL (1.6-8.9)
[2019-09-05 08:41] LABS: Anisocytosis 1+ (Not Present); Platelet Estimate Normal (Normal); Polychromasia 1+ (Not Present)
[2019-09-05 12:00] LABS: Hematocrit 27.9 % (35.3-44.9); Hemoglobin 9.6 g/dL (11.5-15.4)
[2019-09-05 16:43] LABS: Hematocrit 27.5 % (35.3-44.9); Hemoglobin 9.1 g/dL (11.5-15.4)
[2019-09-05] MEDS ORDERED: Clinimix E 5%-15% SOLUTION 2,000 ML with MVI, adult with vitamin K 10 ML IVC SCH (17:00)
[2019-09-05 19:38] LABS: Hematocrit 27.5 % (35.3-44.9); Hemoglobin 9.3 g/dL (11.5-15.4)
[2019-09-06] MEDS: Insulin LISPRO 300 UNITS/3 ML VIAL SQ SCH ×6 (00:40→20:20)
[2019-09-06 04:59] LABS: Basophils % 0.3 %; Eosinophils # 0.2 K/mcL (0.0-0.6); Eosinophils % 1.2 %; Hematocrit 27.7 % (35.3-44.9); Immature Granulocytes % 6.7 % (0-4); Lymphocytes # 0.8 K/mcL (0.6-4.6); Lymphocytes % 5.2 %; Mean Corpuscular HGB Conc 32.5 g/dL (31.6-35.5); Mean Corpuscular Hemoglobin 28.9 pg (28.0-33.3); Mean Corpuscular Volume 89.1 fL (83.0-100.0); Mean Platelet Volume 9.5 fL (9.4-12.4); Monocytes # 0.6 K/mcL (0.0-1.3); Nucleated Red Blood Cells 1.8 /100 WBC (0); Platelet Count 212 K/mcL (140-400); Red Blood Count 3.11 M/mcL (3.82-4.97); Red Cell Distribution Width 21.4 % (11.5-14.5); Segmented Neutrophils % 82.6 %; White Blood Count 14.6 K/mcL (4.3-11.1)
[2019-09-06 05:06] LABS: Neutrophils # 12.1 K/mcL (1.6-8.9)
[2019-09-06 05:24] LABS: BUN/Creatinine Ratio 67 (6-26); Blood Urea Nitrogen 38 mg/dL (8-23); Calcium 7.6 mg/dL (8.6-10.3); Carbon Dioxide 22 mEq/L (23-29); Chloride 102 mEq/L (98-107); Glucose 181 mg/dL (70-105); Magnesium 1.6 mg/dL (1.6-2.6); Osmolality,Calculated 286 (280-300); Phosphorous 3.4 mg/dL (2.7-4.5); Potassium 3.3 mEq/L (3.5-5.1); Sodium 131 mEq/L (136-145); eGFR For African Americans > 60 (> 60); eGFR For Non-African Americans > 60 (> 60)
[2019-09-06 05:51] LABS: Anisocytosis 1+ (Not Present); Platelet Estimate Normal (Normal); Poikilocytosis 1+ (Not Present); Polychromasia 1+ (Not Present)
[2019-09-06] MEDS: Ibuprofen 600 MG TABLET PO PRN (05:51)
[2019-09-06] MEDS: metroNIDAZOLE 500 MG TABLET PO SCH ×3 (07:39→20:21)
[2019-09-06] MEDS: Metoprolol XL (24 HR) Succ 25 MG TAB.ER.24H PO SCH (07:40)
[2019-09-06] MEDS: Tolterodine LA (24 HR) 4 MG CAP.ER.24H PO SCH (07:40)
[2019-09-06] MEDS: Pantoprazole 40 MG VIAL IVP SCH (07:41)
[2019-09-06] MEDS ORDERED: Magnesium Oxide 400 MG TABLET PO SCH (13:30)
[2019-09-06] MEDS ORDERED: Clinimix E 5%-15% SOLUTION 2,000 ML with MVI, adult with vitamin K 10 ML IVC SCH (17:00)
[2019-09-06] MEDS: 0.9 % Sodium Chloride 1,000 ML IVC SCH (22:25)
[2019-09-07] MEDS: Insulin LISPRO 300 UNITS/3 ML VIAL SQ SCH ×6 (00:01→20:19)
[2019-09-07 04:55] LABS: BUN/Creatinine Ratio 71 (6-26); Blood Urea Nitrogen 39 mg/dL (8-23); Calcium 7.7 mg/dL (8.6-10.3); Carbon Dioxide 24 mEq/L (23-29); Chloride 100 mEq/L (98-107); Glucose 139 mg/dL (70-105); Magnesium 1.5 mg/dL (1.6-2.6); Osmolality,Calculated 284 (280-300); Phosphorous 3.7 mg/dL (2.7-4.5); Potassium 2.9 mEq/L (3.5-5.1); Sodium 131 mEq/L (136-145); eGFR For African Americans > 60 (> 60); eGFR For Non-African Americans > 60 (> 60)
[2019-09-07 06:07] LABS: Acinetobacter baumannii by PCR Not Detected (Not Detect); Candida albicans by PCR Not Detected (Not Detect); Candida glabrata by PCR Not Detected (Not Detect); Candida krusei by PCR Not Detected (Not Detect); Candida parapsilosis by PCR Not Detected (Not Detect); Candida tropicalis by PCR Not Detected (Not Detect); Enterobacter cloacae Cmplx PCR Not Detected (Not Detect); Enterobacteriaceae by PCR Not Detected (Not Detect); Enterococcus by PCR Not Detected (Not Detect); Escherichia coli by PCR Not Detected (Not Detect); Klebsiella oxytoca by PCR Not Detected (Not Detect); Klebsiella pneumoniae by PCR Not Detected (Not Detect); Proteus by PCR Not Detected (Not Detect); Pseudomonas aeruginosa by PCR Not Detected (Not Detect); Serratia marcescens by PCR Not Detected (Not Detect); Staphylococcus aureus by PCR Not Detected (Not Detect); Staphylococcus by PCR Not Detected (Not Detect); Streptococcus agalactiae(B)PCR Not Detected (Not Detect); Streptococcus by PCR Not Detected (Not Detect); Streptococcus pneumoniae PCR Not Detected (Not Detect); Streptococcus pyogenes (A) PCR Not Detected (Not Detect)
[2019-09-07] MEDS ORDERED: Potassium Chloride 40 MEQ, Lidocaine 1% 2 ML in 0.9 % Sodium Chloride 500 ML IVPB ONE (07:41)
[2019-09-07] MEDS: Magnesium Oxide 400 MG TABLET PO SCH ×2 (09:28→20:51)
[2019-09-07] MEDS: Metoprolol XL (24 HR) Succ 25 MG TAB.ER.24H PO SCH (09:29)
[2019-09-07] MEDS: metroNIDAZOLE 500 MG TABLET PO SCH ×3 (09:29→20:52)
[2019-09-07] MEDS: Tolterodine LA (24 HR) 4 MG CAP.ER.24H PO SCH (09:30)
[2019-09-07 18:53] LABS: Basophils % 0.2 %; Eosinophils # 0.1 K/mcL (0.0-0.6); Eosinophils % 0.5 %; Hematocrit 27.3 % (35.3-44.9); Hemoglobin 8.7 g/dL (11.5-15.4); Immature Granulocytes % 2.2 % (0-4); Lymphocytes # 0.6 K/mcL (0.6-4.6); Lymphocytes % 4.2 %; Mean Corpuscular HGB Conc 31.9 g/dL (31.6-35.5); Mean Corpuscular Hemoglobin 29.1 pg (28.0-33.3); Mean Corpuscular Volume 91.3 fL (83.0-100.0); Mean Platelet Volume 9.4 fL (9.4-12.4); Monocytes # 0.7 K/mcL (0.0-1.3); Monocytes % 4.8 %; Neutrophils # 12.7 K/mcL (1.6-8.9); Nucleated Red Blood Cells 0.1 /100 WBC (0); Platelet Count 229 K/mcL (140-400); Red Blood Count 2.99 M/mcL (3.82-4.97); Red Cell Distribution Width 22.8 % (11.5-14.5); Segmented Neutrophils % 88.1 %; White Blood Count 14.4 K/mcL (4.3-11.1)
[2019-09-07 18:59] LABS: BUN/Creatinine Ratio 73 (6-26); Blood Urea Nitrogen 36 mg/dL (8-23); Calcium 7.5 mg/dL (8.6-10.3); Carbon Dioxide 23 mEq/L (23-29); Chloride 101 mEq/L (98-107); Glucose 103 mg/dL (70-105); Osmolality,Calculated 285 (280-300); Potassium 3.6 mEq/L (3.5-5.1); Sodium 133 mEq/L (136-145); eGFR For African Americans > 60 (> 60); eGFR For Non-African Americans > 60 (> 60)
[2019-09-08] MEDS: Insulin LISPRO 300 UNITS/3 ML VIAL SQ SCH ×6 (00:02→20:00)
[2019-09-08] MEDS: 0.9 % Sodium Chloride 1,000 ML IVC SCH ×3 (04:12→16:44)
[2019-09-08] MEDS: Metoprolol XL (24 HR) Succ 25 MG TAB.ER.24H PO SCH (08:40)
[2019-09-08] MEDS: Magnesium Oxide 400 MG TABLET PO SCH ×2 (08:40→21:12)
[2019-09-08] MEDS: metroNIDAZOLE 500 MG TABLET PO SCH ×3 (08:40→19:54)
[2019-09-08] MEDS: Tolterodine LA (24 HR) 4 MG CAP.ER.24H PO SCH (08:41)
[2019-09-09 05:32] LABS: Basophils % 0.2 %; Eosinophils # 0.1 K/mcL (0.0-0.6); Eosinophils % 0.5 %; Hemoglobin 9.2 g/dL (11.5-15.4); Lymphocytes # 0.5 K/mcL (0.6-4.6); Lymphocytes % 4.5 %; Mean Corpuscular HGB Conc 32.9 g/dL (31.6-35.5); Mean Corpuscular Hemoglobin 29.1 pg (28.0-33.3); Mean Corpuscular Volume 88.6 fL (83.0-100.0); Mean Platelet Volume 9.2 fL (9.4-12.4); Monocytes # 0.6 K/mcL (0.0-1.3); Monocytes % 5.3 %; Neutrophils # 9.6 K/mcL (1.6-8.9); Platelet Count 283 K/mcL (140-400); Red Blood Count 3.16 M/mcL (3.82-4.97); Red Cell Distribution Width 22.9 % (11.5-14.5); Segmented Neutrophils % 88.5 %; White Blood Count 10.8 K/mcL (4.3-11.1)
[2019-09-09 05:55] LABS: BUN/Creatinine Ratio 57 (6-26); Blood Urea Nitrogen 30 mg/dL (8-23); Calcium 7.6 mg/dL (8.6-10.3); Carbon Dioxide 24 mEq/L (23-29); Chloride 102 mEq/L (98-107); Glucose 114 mg/dL (70-105); Osmolality,Calculated 281 (280-300); Potassium 3.3 mEq/L (3.5-5.1); Sodium 132 mEq/L (136-145); eGFR For African Americans > 60 (> 60); eGFR For Non-African Americans > 60 (> 60)
[2019-09-09] MEDS: Insulin LISPRO 300 UNITS/3 ML VIAL SQ SCH ×6 (07:04→22:42)
[2019-09-09] MEDS ORDERED: Potassium Chloride Elixir 20 MEQ/15 ML UDC PO ONE (07:58)
[2019-09-09] MEDS: Tolterodine LA (24 HR) 4 MG CAP.ER.24H PO SCH (10:00)
[2019-09-09] MEDS: Magnesium Oxide 400 MG TABLET PO SCH ×2 (10:00→22:12)
[2019-09-09] MEDS: metroNIDAZOLE 500 MG TABLET PO SCH ×3 (10:00→22:11)
[2019-09-09] MEDS: Metoprolol XL (24 HR) Succ 25 MG TAB.ER.24H PO SCH (10:16)
[2019-09-09] MEDS ORDERED: Morphine Sulfate 2 MG/ML SYRINGE IVP PRN (12:30)
[2019-09-09] MEDS: 0.9 % Sodium Chloride 1,000 ML IVC SCH (16:17)
[2019-09-10 02:14] LABS: Basophils % 0.2 %; Eosinophils # 0.1 K/mcL (0.0-0.6); Eosinophils % 0.6 %; Hematocrit 30.3 % (35.3-44.9); Hemoglobin 9.5 g/dL (11.5-15.4); Immature Granulocytes % 0.9 % (0-4); Lymphocytes # 0.6 K/mcL (0.6-4.6); Lymphocytes % 5.7 %; Mean Corpuscular HGB Conc 31.4 g/dL (31.6-35.5); Mean Corpuscular Hemoglobin 28.7 pg (28.0-33.3); Mean Corpuscular Volume 91.5 fL (83.0-100.0); Mean Platelet Volume 9.5 fL (9.4-12.4); Monocytes # 0.6 K/mcL (0.0-1.3); Monocytes % 5.8 %; Neutrophils # 9.1 K/mcL (1.6-8.9); Platelet Count 297 K/mcL (140-400); Red Blood Count 3.31 M/mcL (3.82-4.97); Red Cell Distribution Width 22.7 % (11.5-14.5); Segmented Neutrophils % 86.8 %; White Blood Count 10.5 K/mcL (4.3-11.1)
[2019-09-10 02:25] LABS: BUN/Creatinine Ratio 47 (6-26); Blood Urea Nitrogen 25 mg/dL (8-23); Calcium 7.7 mg/dL (8.6-10.3); Carbon Dioxide 23 mEq/L (23-29); Chloride 103 mEq/L (98-107); Glucose 92 mg/dL (70-105); Osmolality,Calculated 280 (280-300); Potassium 3.4 mEq/L (3.5-5.1); Sodium 133 mEq/L (136-145); eGFR For African Americans > 60 (> 60); eGFR For Non-African Americans > 60 (> 60)
[2019-09-10] MEDS: Insulin LISPRO 300 UNITS/3 ML VIAL SQ SCH ×3 (07:30→16:55)
[2019-09-10] MEDS: Magnesium Oxide 400 MG TABLET PO SCH (08:25)
[2019-09-10] MEDS: Tolterodine LA (24 HR) 4 MG CAP.ER.24H PO SCH (08:25)
[2019-09-10] MEDS: metroNIDAZOLE 500 MG TABLET PO SCH ×2 (08:25→13:49)
[2019-09-10] MEDS: Metoprolol XL (24 HR) Succ 25 MG TAB.ER.24H PO SCH (08:26)
[2019-09-10 14:17] VITALS: BP 107/71
== END 2019-09-10 17:22 | DRG 329 ==
LOC: 3ANU → SUATTDRO 09:10 → 2NNU 08-28 13:39 → 3ANU 09-05 10:58
PROVIDERS: ADMIT Internal Medicine; ATTEND Student in an Organized Health Care Education/Training Program